=== PATIENT | female | born 1980 | race Caucasian/White ===

== ENCOUNTER 2019-01-03 18:28 | Emergency (ER) | payer OTHER ==
--- OUTSIDE RECORDS SUMMARY | 2019-01-03 18:42 | XMS REPORT | Continuity of Care Document ---
:1980 External Reference #:[id number] Author Name Clyde Mccarthy NP (transmitted by agent of provider Salima Early) Address [address], [place] [address] Care Team Providers Name Role Phone William Shannon MD - Family Medicine Care Team Information Director Of Advertising Sales [phone] Problems Active Problems Provider Date Multiple sclerosis Khalif Oseguera M.D. Onset: 11/06/2015 Social History Type Date Description Comments Sex Unknown ETOH Use Occasionally consumes alcohol Tobacco Use Start: Unknown Light tobacco smoker (10 or fewer cigarettes/day) Recreational Drug Use Denies Drug Use Smoking Status Reviewed: 12/30/18 Light tobacco smoker (10 or fewer cigarettes/day) Exercise Type/Frequency Exercises regularly Allergies, Adverse Reactions, Alerts Active Allergies Reaction Severity Comments Date NKDA 04/12/2014 Latex 04/12/2014 Enviornmental Allergies 11/06/2015 Medications Active Medications SIG Qnty Indications Ordering Date Provider Ketorolac Tromethamine take one tab by 20tabs R51 Khalif Garcia 12/28/2018 mouth every 4-6 Neil Oseguera 10mg Tablets hours, as needed for severe migraine for five days. max 4 doses a day. take with food. Gilenya take 1 capsule by 30caps R51 Khalif Garcia 11/06/2015 0.5mg Capsules mouth every day Neil Oseguera Levocetirizine Take 1 Tablet By Unknown Dihydrochloride Mouth Daily 5mg Tablets Vitamin D 1 po qd Unknown (Cholecalciferol) 2000Unit Tablets Allergy Shots every other week Unknown Qnasl 2 inhalations in Unknown 80mcg/Act Aerosol each nostril once daily Multivitamin Adult 1 by mouth every Unknown day Tablets Imitrex 1 by mouth as Unknown 50mg Tablets needed for severe headache and may repeat once in 2 hours Ibuprofen 200 1-2 tabs every 6 Unknown 200mg hours as needed Tablets for pain. Naproxen 1 by mouth twice a Unknown 250mg Tablets day prn Immunizations Description No Information Available Vital Signs Date Vital Result Comment 12/30/2018 8:30am Height 63 inches 5'3" Weight 127.00 lb Heart Rate 80 /min BP Systolic Sitting 122 mmHg BP Diastolic Sitting 70 mmHg Respiratory Rate 16 /min BMI (Body Mass Index) 22.5 kg/m2 12/28/2018 1:46pm Height 63 inches 5'3" Weight 127.00 lb Heart Rate 84 /min BP Systolic 142 mmHg BP Diastolic 88 mmHg BMI (Body Mass Index) 22.5 kg/m2 Results Test Date Facility Test Result H/L Range Note CBC Auto 12/28/2018 [facility] White Blood 5.3 10^3/uL Normal 3.5-10.[address] [place] [address] [phone] Red Blood Count 3.98 10^6/uL Normal 3.70-4.87 Hemoglobin 13.7 g/dL Normal 12.0-16.0 Hematocrit 39 % Normal 35-47 Mean Corpuscular Volume 98 fL High 80-97 Mean Corpuscular Hemoglobin 34 pg High 27-31 Mean Corpuscular HGB Conc 35 g/dL Normal 31-36 Red Cell Distribution Width 12 % Normal 10-15 Platelet Count 323 10^3/uL Normal 150-450 Mean Platelet Volume 7.8 fL Normal 7.4-10.4 Abs Neutrophils 4.3 10^3/uL Normal 1.5-7.7 Abs Lymphocytes 0.4 10^3/uL Low 1.0-4.8 Abs Monocytes 0.5 10^3/uL Normal 0-0.8 Abs Eosinophils 0.1 10^3/uL Normal 0-0.6 Abs Basophils 0.0 10^3/uL Normal 0-0.2 Abs Nucleated RBC 0.0 10^3/uL Granulocyte % 80.9 % Lymphocyte % 8.1 % Monocyte % 8.9 % Eosinophil % 1.6 % Basophil % 0.5 % Nucleated Red Blood Cells % 0.1 Comp Metabolic 12/28/2018 [facility] Sodium 140 mmol/L Normal 135-145 Panel [address] [place] [address] [phone] Potassium 3.9 mmol/L Normal 3.5-5.0 Chloride 105 mmol/L Normal 101-111 Co2 Carbon Dioxide 28 mmol/L Normal 22-32 Anion Gap 7 mmol/L Normal 2-11 Glucose 91 mg/dL Normal 70-100 Blood Urea Nitrogen 6 mg/dL Normal 6-24 Creatinine 0.70 mg/dL Normal 0.51-0.95 BUN/Creatinine Ratio 8.6 Normal 8-20 Calcium 9.2 mg/dL Normal 8.6-10.3 Total Protein 6.2 g/dL Low 6.4-8.9 Albumin 4.6 g/dL Normal 3.2-5.2 Globulin 1.6 g/dL Low 2-4 Albumin/Globulin Ratio 2.9 Normal 1-3 Total Bilirubin 0.60 mg/dL Normal 0.2-1.0 Alkaline Phosphatase 41 U/L Normal 34-104 Alt 18 U/L Normal 7-52 Ast 17 U/L Normal 13-39 Egfr Non- 94.2 >60 Egfr 113.9 >60 1 Laboratory test 12/28/2018 [facility] Monospot Negative Negative 2 finding [address] [place] [address] [phone] Lyme Screen W/ Reflex To WB Negative Negative Laboratory test 12/28/2018 [facility] C Reactive < 1.00 Normal <8.01 finding [address] [facility] Protein mg/[place] [address] [phone] CBC Auto Diff 08/23/2018 [facility] White Blood 5.1 Normal 3.5 -10.[address] Count 10^3/[place] [address] [phone] Red Blood Count 4.01 10^6/uL Normal 3.70-4.87 Hemoglobin 13.5 g/dL Normal 12.0-16.0 Hematocrit 39 % Normal 35-47 Mean Corpuscular Volume 97 fL Normal 80-97 Mean Corpuscular Hemoglobin 34 pg High 27-31 Mean Corpuscular HGB Conc 35 g/dL Normal 31-36 Red Cell Distribution Width 12 % Normal 10.5-15 Platelet Count 277 10^3/uL Normal 150-450 Mean Platelet Volume 8.4 fL Normal 7.4-10.4 Abs Neutrophils 4.1 10^3/uL Normal 1.5-7.7 Abs Lymphocytes 0.3 10^3/uL Low 1.0-4.8 Abs Monocytes 0.5 10^3/uL Normal 0-0.8 Abs Eosinophils 0.1 10^3/uL Normal 0-0.6 Abs Basophils 0.0 10^3/uL Normal 0-0.2 Abs Nucleated RBC 0.0 10^3/uL Granulocyte % 81.0 % Lymphocyte % 6.7 % Monocyte % 10.4 % Eosinophil % 1.5 % Basophil % 0.4 % Nucleated Red Blood Cells % 0.0 Comp Metabolic 08/23/2018 [facility] Sodium 138 mmol/L Normal 135-[address] [place] [address] [phone] Potassium 4.1 mmol/L Normal 3.5-5.0 Chloride 104 mmol/L Normal 101-111 Co2 Carbon Dioxide 27 mmol/L Normal 22-32 Anion Gap 7 mmol/L Normal 2-11 Glucose 72 mg/dL Normal 70-100 Blood Urea Nitrogen 8 mg/dL Normal 6-24 Creatinine 0.64 mg/dL Normal 0.51-0.95 BUN/Creatinine Ratio 12.5 Normal 8-20 Calcium 9.2 mg/dL Normal 8.6-10.3 Total Protein 6.6 g/dL Normal 6.4-8.9 Albumin 4.6 g/dL Normal 3.2-5.2 Globulin 2.0 g/dL Normal 2-4 Albumin/Globulin Ratio 2.3 Normal 1-3 Total Bilirubin 0.70 mg/dL Normal 0.2-1.0 Alkaline Phosphatase 44 U/L Normal 34-104 Alt 16 U/L Normal 7-52 Ast 20 U/L Normal 13-39 Egfr Non- 105.0 >60 Egfr 127.0 >60 3 1 Because ethnic data is not always readily available, this report includes an eGFR for both -Americans and non- Americans. The National Kidney Disease Education Program (NKDEP) does not endorse the use of the MDRD equation for patients that are not between the ages of 18 and 70, are , have extremes of body size, muscle mass, or nutritional status, or are non- or non-. According to the National Kidney Foundation, irrespective of diagnosis, the stage of the disease is based on the level of kidney function: Stage Description GFR(mL/min/1.73 m(2)) 1 Kidney damage with normal or decreased GFR 90 2 Kidney damage with mild decrease in GFR 60-89 3 Moderate decrease in GFR 30-59 4 Severe decrease in GFR 15-29 5 Kidney failure <15 (or dialysis) 2 Would you like an EBV if Monospot is Negative?: Y 3 Because ethnic data is not always readily available, this report includes an eGFR for both -Americans and non- Americans. The National Kidney Disease Education Program (NKDEP) does not endorse the use of the MDRD equation for patients that are not between the ages of 18 and 70, are , have extremes of body size, muscle mass, or nutritional status, or are non- or non-. According to the National Kidney Foundation, irrespective of diagnosis, the stage of the disease is based on the level of kidney function: Stage Description GFR(mL/min/1.73 m(2)) 1 Kidney damage with normal or decreased GFR 90 2 Kidney damage with mild decrease in GFR 60-89 3 Moderate decrease in GFR 30-59 4 Severe decrease in GFR 15-29 5 Kidney failure <15 (or dialysis) Procedures Description No Information Available Medical Devices Description No Information Available Encounters Type Date Location Provider Dx Diagnosis Office Visit 08/23/2018 [facility] Khalif Oseguera, G35 Multiple sclerosis 3:30p [facility] Z79.899 Other correction (current) drug therapy 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 08/23/2018 Z79.899 Other correction (current) drug therapy Khalif Oseguera M.D. 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 Plan of Treatment Future Appointment(s):02/21/2019 3:45 pm - Khalif Oseguera M.D. at [facility]12/30/2018 - Clyde Mccarthy, NPR51 [id number] Multiple sclerosisFollow up:May keep follow-up appointment with Dr. Oseguera on February 21, 2019.Z79.899 Other remote computer terminal operator (current) drug therapy Functional Status Description No Information Available Mental Status Description No Information Available Referrals Description No Information Available
--- OUTSIDE RECORDS SUMMARY | 2019-01-03 18:42 | XMS REPORT | Continuity of Care Document ---
:1980 External Reference #:[id number] Author Name Clyde Mccarthy NP (transmitted by agent of provider Salima Early) Address [address], [place] [address] Care Team Providers Name Role Phone William Shannon MD - Family Medicine Care Team Information Pad Hand Problems Active Problems Provider Date Multiple sclerosis Khalif Oseguera M.D. Onset: 11/06/2015 Social History Type Date Description Comments Sex Unknown ETOH Use Occasionally consumes alcohol Tobacco Use Start: Unknown Light tobacco smoker (10 or fewer cigarettes/day) Recreational Drug Use Denies Drug Use Smoking Status Reviewed: 12/28/18 Light tobacco smoker (10 or fewer cigarettes/day) [...] Available Vital Signs Date Vital Result Comment 12/28/2018 1:46pm Height 63 inches 5'3" Weight 127.00 lb Heart Rate 84 /min BP Systolic 142 mmHg BP Diastolic 88 mmHg BMI (Body Mass Index) 22.5 kg/m2 08/23/2018 3:34pm Height 63 inches 5'3" Weight 129.00 lb Heart Rate 68 /min BP Systolic Sitting 122 mmHg BP Diastolic Sitting 68 mmHg Respiratory Rate 16 /min BMI (Body Mass Index) 22.8 kg/m2 Results Test Date Facility Test Result H/L Range Note CBC Auto 08/23/2018 [facility] White Blood 5.1 10^3/uL Normal 3.5-10.[address] [place] [address] [phone] Red Blood Count 4.01 10^6/uL Normal 3.70-4.87 [...] Blood Cells % 0.0 Comp Metabolic 08/23/2018 [facility] Sodium 138 mmol/L Normal 135-[address] [place] [address] [phone] Potassium 4.1 mmol/L Normal 3.5-5.0 Chloride 104 [...] Egfr Non- 105.0 >60 Egfr 127.0 >60 1 1 Because ethnic data is not always [...] Location Provider Dx Diagnosis Office Visit 08/23/2018 [facility] Khalif Oseguera, G35 Multiple sclerosis 3:30p [facility] Felipe79.899 Other adjunct faculty for medical terminology (current) drug therapy 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 08/23/2018 Z79.899 Other halfway (current) drug therapy Khalif Oseguera M.D. 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 Plan of Treatment Future Appointment(s):12/30/2018 8:30 am - Clyde Mccarthy NP at [facility]/21/2019 3:45 pm - Khalif Oseguera M.D. at [facility]12/28/2018 - Clyde Mccarthy, NPR51 HeadacheNew Medication:Ketorolac Tromethamine 10 mg - take one tab by mouth every 4-6 hours, as needed for severe migraine for five days. max 4 doses a day. take with food.Follow up: Please schedule for Wednesday with Clyde Functional Status Description No Information Available Mental Status Description No Information Available Referrals Description No Information Available
--- NOTE | 2019-01-03 23:29 | ED ---
Headache - HPI Summary HPI Summary: Pt is a 38 y/o F presenting to the ED with a chief complaint of a headache initially onset on 12/25/18. The pain is located right at the base of her neck, the area is edematous, and it spreads to her L temporal region and behind her L eye. She has had migraines in the past but these sx are not normal for her. She also notes hx of MS. Toradol has alleviated her pain but it continuously comes back every time the toradol wears off. The pain is the worst in the morning, and she was advised to come to the ED by her neurologist. She reports vomiting, dizziness, and some tingling in her fingers. She denies blurred vision, and weakness in arms or legs. - History Of Current Complaint Chief Complaint: EDHeadache Stated Complaint: HEADACHE PER PT Time Seen by Provider: 01/03/19 21:34 Hx Obtained From: Patient Onset/Duration: Gradual Onset, Started days ago, Still Present Initially Headache Was: Moderate Currently Pain Is: Moderate Timing: Constant, Days Character: Throbbing - when bent over Aggravating Factor: Nothing Allevating Factors: Nothing Associated Signs And Symptoms: Dizziness, Vomiting, Other (Noted In Comments) - tingling in fingers - Allergies/Home Medications Allergies/Adverse Reactions: Allergies Allergy/AdvReac Type Severity Reaction Status Date / Time latex Allergy Itching Verified 01/03/19 13:56 Home Medications: Home Medications Fingolimod (NF) [Gilenya] 0.5 mg PO DAILY 01/03/19 [History Confirmed 01/03/19] Ketorolac TAB * [Toradol TAB *] 10 mg PO Q6HR PRN 01/03/19 [History Confirmed ] Multivitamins/Minerals TAB* [Theragran/minerals TAB*] 1 tab PO DAILY 01/03/19 [ History Confirmed 01/03/19] PMH/Surg Hx/FS Hx/Imm Hx Previously Healthy: Yes Endocrine/Hematology History: Denies: Hx Diabetes Cardiovascular History: Denies: Hx Hypertension, Hx Pacemaker/ICD Respiratory History: Denies: Hx Asthma History: Denies: Hx Renal Disease Musculoskeletal History: Reports: Other Musculoskeletal History - MS Sensory History: Denies: Hx Hearing Aid Neurological History: Reports: Other Neuro Impairments/Disorders - MS Psychiatric History: Denies: Hx Panic Disorder - Cancer History Cancer Type, 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 wisdom teeth,. moles removed,. TONSILLECTOMY,. IMPLANON CONTROL Infectious Disease History: No Infectious Disease History: Denies: Traveled Outside the [place] in Last 30 Days - Family History Known Family History: Negative: Diabetes - Social History Alcohol Use: None Hx Substance Use: No Substance Use Type: Reports: None Hx Tobacco Use: Yes Smoking Status (MU): Current Some Day Smoker Type: Cigarettes Amount Used/How Often: 1 pack per week Have You Smoked in the Last Year: Yes Review of Systems Positive: Fatigue, Other - feeling out of it Eyes: Negative Positive: Nausea. Negative: Vomiting Neurological: Other - dizziness Positive: Headache, Paresthesia - fingers. Negative: Weakness All Other Systems Reviewed And Are Negative: Yes Physical Exam - Summary Physical Exam Summary: Constitutional: Well-developed, Well-nourished, Alert. (-) Distressed Skin: Warm, Dry HENT: Normocephalic; Atraumatic Eyes: Conjunctiva normal Neck: Musculoskeletal ROM normal neck. (-) JVD, (-) Stridor, (-) Tracheal deviation Cardio: Rhythm regular, rate normal, Heart sounds normal; Intact distal pulses. Radial pulses are 2+ and symmetric. (-) Murmur Pulmonary/Chest wall: Effort normal. (-) Respiratory distress, (-) Wheezes, (-) Rales Abd: Soft. (-) Tenderness, (-) Distension, (-) Guarding, (-) Rebound Musculoskeletal: (-) Edema Lymph: (-) Cervical adenopathy Neuro: Alert, Oriented x3, Strength normal, Cranial nerves II-XII are grossly intact. (-) Dysmetria, (-) Nystagmus, (-) Ataxia by finger to nose testing, (-) Sensory deficit. Psych: Mood and affect Normal Triage Information Reviewed: Yes Vital Signs On Initial Exam: Initial Vitals Temp Pulse Resp BP Pulse Ox 98.3 F 89 18 130/90 100 01/03/19 18:33 01/03/19 18:33 01/03/19 18:33 01/03/19 18:33 01/03/19 18:33 Vital Signs Reviewed: Yes - Junior Coma Scale Best Eye Response: 4 - Spontaneous Best Motor Response: 6 - Obeys Commands Best Verbal Response: 5 - Oriented Coma Scale Total: 15 Procedures - Sedation Patient Received Moderate/Deep Sedation with Procedure: No Diagnostics - Vital Signs Vital Signs Temp Pulse Resp BP Pulse Ox 01/03/19 21:00 99.1 F 86 18 138/79 100 01/03/19 18:33 98.3 F 89 18 130/90 100 - Laboratory Lab Statement: Any lab studies that have been ordered have been reviewed, and results considered in the medical decision making process. - CT Brain CT CT Interpretation Completed By: Radiologist Summary of CT Findings: 1. No acute intracranial findings. No intracranial hemorrhage. 2. Subtle areas of white matter hypodensity consistent with abnormalities on brain MRI dated 04/15/18, suggesting areas of demyelination from multiple sclerosis. ED physician has reviewed this report. Headache Course/Dx - Course Course Of Treatment: Patient is here 10 days of waxing and waning headache that is currently improving. Patient had a normal neurologic exam here. Patient was offered IV medicine than she would have to have a ride corrupt but she could not find a ride. Patient had negative CT brain. The patient is discharged a small prescription of Fioricet and instructions to follow-up with Dr. Oseguera - Diagnoses Provider Diagnoses: Headache Discharge ED - Sign-Out/Discharge Documenting (check all that apply): Patient Departure - Discharge Plan Condition: Stable Disposition: HOME Prescriptions: Butalb/Acetamin/Caff TAB* [Fioricet TAB*] 1 tab PO Q8H PRN #12 tab MDD 3 tablets PRN Reason: Headache Patient Education Materials: General Headache (ED) Referrals: William Shannon MD [Primary Care Provider] - Additional Instructions: Please follow up with Dr. Oseguera within the next 1-3 days. Take your new medications as prescribed. Return to the emergency department with any new or worsening symptoms, such as vomiting, one-sided weakness, or fever. - Billing Disposition and Condition Condition: STABLE Disposition: Home - Attestation Statements Document Initiated by Scribe: Yes Documenting Scribe: Zoya Blanco Provider For Whom Scribe is Documenting (Include Credential): Miguel Emanuel MD. Scribe Attestation: Zoya Casanova, scribed for Miguel Emanuel MD. on 01/04/19 at 0304. Scribe Documentation Reviewed: Yes Provider Attestation: The documentation as recorded by the scribe, Zoya Blanco accurately reflects the service I personally performed and the decisions made by me, Miguel Emanuel MD. Status of Scribe Document: Viewed
[2019-01-04 00:10] VITALS: BP 140/80
== END 2019-01-04 00:09 | disposition home or self-care (01) ==
LOC: ED 18:28
DX: R51 Headache (principal); F17.210 Nicotine dependence, cigarettes, uncomplicated; Z91.040 Latex allergy status; Z79.899 Other long term (current) drug therapy
CPT/HCPCS: 70450; 99282

== ENCOUNTER 2019-07-11 19:09 | Inpatient (IN) | payer OTHER ==
--- NOTE | 2019-07-11 19:44 | ED ---
Complex/Multi-Sys Presentation - HPI Summary HPI Summary: This patient is a 38 y/o female, with hx of MS, presenting [place] [facility] [place]/o fever today. Patient reports she was at work today and at around 1700 she suddenly felt warm and had visual changes. She notes she had blurry vision that lasted for about 1 hour and went home. Patient states she is able to see better now with no problems, however she feels like she is "drunk." She states a subjective fever now but did not take her temperature. Denies any upper respiratory infection symptoms. Denies cough, chest pain, SOB, palpitations, nausea, vomiting, diarrhea, constipation. Patient admits to smoking occasionally. Denies alcohol or drug use. Home Medications Medication Instructions Recorded Confirmed Type Cholecalciferol TAB* [Vitamin D 2,000 units PO DAILY 04/03/16 07/11/19 History TAB*] Fingolimod (NF) [Gilenya] 0.5 mg PO DAILY 01/03/19 07/11/19 History Multivitamins/Minerals TAB* 1 tab PO DAILY 01/03/19 07/11/19 History [Theragran/minerals TAB*] Butalb/Acetamin/Caff TAB* 1 tab PO Q8H PRN #12 tab MDD 3 01/04/19 07/11/19 Rx [Fioricet TAB*] tablets LevoCETirizine TAB (NF) [Xyzal TAB 5 mg PO DAILY 07/11/19 07/11/19 History (NF)] SUMAtriptan TAB* [Imitrex TAB*] 50 mg PO BID PRN 07/11/19 07/11/19 History - History Of Current Complaint Time Seen by Provider: 07/11/19 19:19 Hx Obtained From: Patient Onset/Duration: Lasting Hours, Still Present Timing: Hours Severity Currently: Moderate Aggravating Factor(s): nothing Alleviating Factor(s): nothing Associated Signs And Symptoms: Positive: Fever, Other - NEGATIVE: constipation. Negative: SOB, Cough, Chest Pain, Palpitations, Nausea, Vomiting, Diarrhea, Abdominal Pain - Allergies/Home Medications Allergies/Adverse Reactions: Allergies Allergy/AdvReac Type Severity Reaction Status Date / Time latex Allergy Itching Verified 07/11/19 19:47 Home Medications: Home Medications Cholecalciferol TAB* [Vitamin D TAB*] 2,000 units PO DAILY 04/03/16 [History Confirmed 07/11/19] Fingolimod (NF) [Gilenya] 0.5 mg PO DAILY 01/03/19 [History Confirmed 07/11/19] Multivitamins/Minerals TAB* [Theragran/minerals TAB*] 1 tab PO DAILY 01/03/19 [ History Confirmed 07/11/19] Butalb/Acetamin/Caff TAB* [Fioricet TAB*] 1 tab PO Q8H PRN #12 tab MDD 3 tablets 01/04/19 [Rx Confirmed 07/11/19] LevoCETirizine TAB (NF) [Xyzal TAB (NF)] 5 mg PO DAILY PRN 07/11/19 [History Confirmed 07/11/19] SUMAtriptan TAB* [Imitrex TAB*] 50 mg PO BID PRN 07/11/19 [History Confirmed ] PMH/Surg Hx/FS Hx/Imm Hx Endocrine/Hematology History: Denies: Hx Diabetes Cardiovascular History: Denies: Hx Hypertension, Hx Pacemaker/ICD Respiratory History: Denies: Hx Asthma History: Denies: Hx Renal Disease Musculoskeletal History: Reports: Other Musculoskeletal History - MS Sensory History: Denies: Hx Hearing Aid Neurological History: Reports: Other Neuro Impairments/Disorders - MS Psychiatric History: Denies: Hx Panic Disorder - Cancer History Cancer Type, 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 wisdom teeth,. moles removed,. TONSILLECTOMY,. IMPLANON CONTROL - Family History Known Family History: Negative: Diabetes - Social History Alcohol Use: None Hx Substance Use: No Substance Use Type: Reports: None Hx Tobacco Use: Yes Smoking Status (MU): Current Some Day Smoker Type: Cigarettes Amount Used/How Often: 1 pack per week Have You Smoked in the Last Year: Yes Review of Systems Positive: Fever - subjective Positive: Blurred Vision Negative: Palpitations, Chest Pain Negative: Shortness Of Breath, Cough Negative: Vomiting, Diarrhea, Nausea, Other - NEGATIVE: constipation All Other Systems Reviewed And Are Negative: Yes Physical Exam - Summary Physical Exam Summary: VITAL SIGNS: Reviewed. GENERAL: Patient is a well-developed and nourished female who is lying comfortable in the stretcher. Patient is not in any acute respiratory distress. HEAD AND FACE: No signs of trauma. No ecchymosis, hematomas or skull depressions. No sinus tenderness. EYES: PERRLA, EOMI x 2, No injected conjunctiva, no nystagmus. EARS: Hearing grossly intact. Ear canals and tympanic membranes are within normal limits. MOUTH: Oropharynx within normal limits. NECK: Supple, trachea is midline, no adenopathy, no JVD, no carotid bruit, no c- spine tenderness, neck with full ROM. CHEST: Symmetric, no tenderness at palpation LUNGS: Clear to auscultation bilaterally. No wheezing or crackles. CVS: Regular rate and rhythm, S1 and S2 present, no murmurs or gallops appreciated. ABDOMEN: Soft, non-tender. No signs of distention. No rebound no guarding, and no masses palpated. Bowel sounds are normal. EXTREMITIES: FROM in all major joints, no edema, no cyanosis or clubbing. NEURO: Alert and oriented x 3. No acute neurological deficits. Speech is normal and follows commands. SKIN: Dry and warm Triage Information Reviewed: Yes Vital Signs On Initial Exam: Initial Vitals Temp Pulse Resp BP Pulse Ox 101.6 F 118 18 132/81 98 07/11/19 19:41 07/11/19 19:41 07/11/19 19:41 07/11/19 19:41 07/11/19 19:41 Vital Signs Reviewed: Yes Procedures - Sedation Patient Received Moderate/Deep Sedation with Procedure: No Diagnostics - Laboratory Result Diagrams: 07/12/19 09:15 07/11/19 20:10 Lab Statement: Any lab studies that have been ordered have been reviewed, and results considered in the medical decision making process. - Radiology Chest XR Radiology Interpretation Completed By: ED Physician Summary of Radiographic Findings: Pending XR. Re-Evaluation - Re-Evaluation First Eval Re-Evaluation Time: 19:42 Comment: Patient has an oral temperature of 101.6 F. Complex Multi-Symp Course/Dx Assessment/Plan: This patient is a 38 y/o female, with hx of MS, presenting to [facility] c/o fever today. Patient reports she was at work today and at around 1700 she suddenly felt warm. Additionally notes she had blurry vision that lasted for about 1 hour and is currently resolving. Patient states she is able to see better now with no problems, however she feels like she is "drunk." She states a subjective fever now but did not take her temperature. Denies any upper respiratory infection symptoms. Denies cough, chest pain, SOB, palpitations, nausea, vomiting, diarrhea, constipation. Patient admits to smoking occasionally. Denies alcohol or drug use. In the ED course the patient was placed in a ladle pourer, IV access was obtained. Patient is febrile at 101.6F, heart rate is 118, respiratory rate is 18, O2 saturation is 98 and blood pressure is 132/81. He is positive for sepsis criteria. However since the patient may be at risk for COVID-19, I will not start the patient on IV fluids 30 ccs per KG. The patient will not be started on antibiotics at this time. I will order the blood work, chest x-ray, blood cultures and a urinalysis. I will also order the COVID-19 test. She was given 650 mg of Tylenol. Past medical records reviewed. Blood test w/o a significant abnormality except for WBC of 12.9, absolute neutrophils of 12, CRP of 11.96, urinalysis is positive for UTI. Blood culture was sent and we started patient on Rocephin for the UTI. I discussed the case with Dr. Vasquez, hospitalist, and she recommend giving one litter of IV fluids since the patient has a UTI. I discussed my physical exam and test results with Dr. Vasquez from the hospitalist services and she agrees to admit the patient to her services. The patient is hemodynamically stable, alert and oriented x 3. - Diagnoses Provider Diagnoses: UTI (urinary tract infection) - Physician Notifications Discussed Care Of Patient With: Anuja Vasquez - hospitalist Time Discussed With Above Provider: 20:49 Instructed by Provider To: Admit As Inpatient - Critical Care Time Critical Care Statement: Critical care time is provided exclusive of any time spent performing procedures. Discharge ED - Sign-Out/Discharge Documenting (check all that apply): Patient Departure - [place] [facility] [place] Discharge Plan Condition: Stable Disposition: ADMITTED TO [facility] - Billing Disposition and Condition Condition: STABLE Disposition: Admitted to [facility] - Attestation Statements Document Initiated by Scribe: Yes Documenting Scribe: Concepcion Carter Provider For Whom Scribe is Documenting (Include Credential): Thad Medellin, MD Scribe Attestation: I, Concepcion Carter, scribed for Thad Medellin MD on 07/12/19 at 1227. Scribe Documentation Reviewed: Yes Provider Attestation: The documentation as recorded by the scribeConcepcion accurately reflects the service I personally performed and the decisions made by me, Thad Medellin MD Status of Scribe Document: Viewed
--- OUTSIDE RECORDS SUMMARY | 2019-07-11 20:05 | XMS REPORT | Continuity of Care Document ---
:1980 External Reference #:[id number] Author Name Allergy Injection (transmitted by agent of provider Pearl Pozo) Address [address] [place] [address] Care Team Providers Name Role Phone William Shannon M.D. - Family Medicine Care Team Information 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 Onset: 12/09/2015 Allergic rhinitis Joel Call M.D. Onset: 07/09/2014 Acute sinusitis Joel Call M.D. Onset: 07/09/2014 Allergic rhinitis due to pollen Joel Call M.D. Onset: 05/22/2013 Social History Type Date Description Comments Sex Unknown ETOH Use Rarely consumes alcohol Tobacco Use Start: Unknown Patient is a current smoker, smokes some days Recreational Drug Use Never Used Drugs Allergies, Adverse Reactions, Alerts Description No Known Drug Allergies Medications Active Medications SIG Qnty Indications Ordering Date Provider Qnasl Use 2 Sprays 10.6units J30.1 Kathryn 12/09/2015 80mcg/Act Aerosol In Each Uldrich, [employer]ER-C Nostril Daily Levocetirizine Take 1 Tablet 90tabs Kathryn 06/18/2014 Dihydrochloride By Mouth Every Uldrich, [employer] FORESTER-C 5mg Tablets Day Levocetirizine Take 1 Tablet 90tabs Kathryn 06/18/2014 Dihydrochloride By Mouth Every Uldrich, [employer] FORESTER-C 5mg Tablets Day Multivital one a day Unknown Tablets Vitamin D once daily Unknown 2000Unit Tablets Gilenya Take 1 Capsule Unknown 0.5mg Capsules By Mouth Every Day Nexplanon Unknown 68mg Implant Medications Administered in Office Medication SIG Qnty Indications Ordering Provider Date Injection Allergy Injection 06/19/2019 Injection Injection Allergy Injection 06/05/2019 Injection Injection Allergy Injection 05/08/2019 Injection Injection Allergy Injection 04/24/2019 Injection Injection Allergy Injection 04/17/2019 Injection Injection Allergy Injection 03/27/2019 Injection Injection Allergy Injection 02/20/2019 Injection Injection Allergy Injection 01/30/2019 Injection Injection Allergy Injection 01/23/2019 Injection Injection Allergy Injection 12/05/2018 Injection Injection Allergy Injection 11/23/2018 Injection Injection Allergy Injection 10/31/2018 Injection Injection Allergy Injection 10/10/2018 Injection Injection Allergy Injection 09/26/2018 Injection Injection Allergy Injection 09/12/2018 Injection Injection Allergy Injection 08/29/2018 Injection Injection Allergy Injection 08/15/2018 Injection Injection Allergy Injection 08/01/2018 Injection Injection Allergy Injection 07/11/2018 Injection Injection Allergy Injection 06/27/2018 Injection Injection Allergy Injection 06/13/2018 Injection Injection Allergy Injection 05/02/2018 Injection Injection Allergy Injection 04/18/2018 Injection Injection Allergy Injection 04/04/2018 Injection Injection Allergy Injection 03/07/2018 Injection Injection Allergy Injection 02/14/2018 Injection Injection Allergy Injection 01/24/2018 Injection Injection Allergy Injection 01/10/2018 Injection Injection Allergy Injection 12/20/2017 Injection Injection Allergy Injection 12/06/2017 Injection Injection Allergy Injection 11/24/2017 Injection Injection Pretty Thomas M.D. 11/15/2017 Injection Injection Allergy Injection 11/15/2017 Injection Injection Allergy Injection 11/01/2017 Injection Injection Pretty Thomas M.D. 10/18/2017 Injection Injection Allergy Injection 10/18/2017 Injection Injection Allergy Injection 09/27/2017 Injection Injection Allergy Injection 09/13/2017 Injection Injection Allergy Injection 08/30/2017 Injection Injection Pretty Thomas M.D. 08/16/2017 Injection Injection Allergy Injection 08/16/2017 Injection Injection Pretty Thomas M.D. 08/02/2017 Injection Injection Allergy Injection 08/02/2017 Injection Injection Allergy Injection 07/19/2017 Injection Injection Allergy Injection 06/28/2017 Injection Injection Allergy Injection 06/14/2017 Injection Injection Allergy Injection 05/31/2017 Injection Injection Allergy Injection 05/17/2017 Injection Injection Allergy Injection 05/03/2017 Injection Injection Allergy Injection 04/19/2017 Injection Injection Allergy Injection 04/05/2017 Injection Injection Allergy Injection 03/18/2017 Injection Injection Allergy Injection 03/08/2017 Injection Injection Allergy Injection 02/22/2017 Injection Injection Pretty Thomas M.D. 02/08/2017 Injection Injection Allergy Injection 02/08/2017 Injection Injection Allergy Injection 01/25/2017 Injection Injection Allergy Injection 01/11/2017 Injection Injection Allergy Injection 12/21/2016 Injection Injection Allergy Injection 12/03/2016 Injection Injection Allergy Injection 11/16/2016 Injection Injection Allergy Injection 11/02/2016 Injection Injection Allergy Injection 10/19/2016 Injection Injection Allergy Injection 10/05/2016 Injection Injection Pretty Thomas M.D. 09/14/2016 Injection Injection Allergy Injection 09/14/2016 Injection Injection Allergy Injection 08/31/2016 Injection Injection Allergy Injection 08/17/2016 Injection Injection Allergy Injection 07/20/2016 Injection Injection Allergy Injection 07/06/2016 Injection Injection Allergy Injection 06/22/2016 Injection Injection Pretty Thomas M.D. 06/08/2016 Injection Injection Allergy Injection 06/08/2016 Injection Injection Allergy Injection 05/25/2016 Injection Injection Allergy Injection 05/11/2016 Injection Injection Allergy Injection 04/20/2016 Injection Injection Allergy Injection 04/06/2016 Injection Injection Allergy Injection 03/27/2016 Injection Injection Allergy Injection 03/16/2016 Injection Injection Allergy Injection 03/02/2016 Injection Injection Allergy Injection 02/17/2016 Injection Injection Allergy Injection 02/03/2016 Injection Injection Allergy Injection 01/20/2016 Injection Injection Allergy Injection 12/30/2015 Injection Injection Allergy Injection 12/09/2015 Injection Injection Allergy Injection 11/25/2015 Injection Injection Allergy Injection 11/11/2015 Injection Injection Allergy Injection 10/21/2015 Injection Injection Allergy Injection 2015 Injection Injection Pretty Thomas M.D. 09/23/2015 Injection Injection Allergy Injection 09/23/2015 Injection Injection Allergy Injection 09/16/2015 Injection Injection Allergy Injection 09/02/2015 Injection Injection Allergy Injection 08/19/2015 Injection Injection Allergy Injection 08/12/2015 Injection Injection Allergy Injection 07/29/2015 Injection Injection Allergy Injection 07/15/2015 Injection Injection Allergy Injection 07/01/2015 Injection Injection Allergy Injection 06/17/2015 Injection Injection Allergy Injection 06/03/2015 Injection Injection Allergy Injection 05/20/2015 Injection Injection Allergy Injection 04/29/2015 Injection Injection Allergy Injection 04/15/2015 Injection Injection Allergy Injection 04/01/2015 Injection Injection Allergy Injection 03/18/2015 Injection Injection Allergy Injection 03/11/2015 Injection Injection Allergy Injection 03/04/2015 Injection Injection Allergy Injection 02/25/2015 Injection Injection Allergy Injection 02/13/2015 Injection Injection Allergy Injection 01/28/2015 Injection Injection Allergy Injection 01/14/2015 Injection Injection Allergy Injection 12/24/2014 Injection Injection Allergy Injection 12/12/2014 Injection Injection Allergy Injection 11/30/2014 Injection Injection Allergy Injection 11/19/2014 Injection Injection Allergy Injection 11/05/2014 Injection Injection Allergy Injection 10/22/2014 Injection Injection Allergy Injection 10/01/2014 Injection Injection Allergy Injection 09/17/2014 Injection Injection Allergy Injection 09/10/2014 Injection Injection Allergy Injection 09/03/2014 Injection Injection Allergy Injection 08/27/2014 Injection Injection Allergy Injection 08/06/2014 Injection Injection Allergy Injection 07/30/2014 Injection Injection Allergy Injection 07/23/2014 Injection Injection Allergy Injection 07/16/2014 Injection Injection Allergy Injection 07/09/2014 Injection Injection Allergy Injection 07/04/2014 Injection Injection Allergy Injection 06/18/2014 Injection Injection Allergy Injection 06/11/2014 Injection Injection Allergy Injection 05/21/2014 Injection Injection Allergy Injection 05/14/2014 Injection Injection Allergy Injection 05/07/2014 Injection Injection Allergy Injection 04/23/2014 Injection Injection Allergy Injection 04/16/2014 Injection Injection Allergy Injection 04/09/2014 Injection Injection Allergy Injection 04/02/2014 Injection Injection Allergy Injection 03/26/2014 Injection Injection Allergy Injection 03/19/2014 Injection Injection Allergy Injection 03/12/2014 Injection Injection Allergy Injection 03/05/2014 Injection Injection Allergy Injection 02/26/2014 Injection Injection Allergy Injection 02/19/2014 Injection Injection Allergy Injection 02/12/2014 Injection Injection Allergy Injection 02/05/2014 Injection Injection Allergy Injection 01/29/2014 Injection Injection Allergy Injection 01/08/2014 Injection Injection Allergy Injection 01/01/2014 Injection Injection Allergy Injection 12/25/2013 Injection Injection Allergy Injection 12/18/2013 Injection Injection Allergy Injection 12/11/2013 Injection Injection Allergy Injection 12/04/2013 Injection Injection Allergy Injection 11/24/2013 Injection Injection Allergy Injection 11/20/2013 Injection Injection Allergy Injection 11/13/2013 Injection Injection Allergy Injection 11/06/2013 Injection Injection Allergy Injection 10/30/2013 Injection Injection Allergy Injection 10/23/2013 Injection Injection Allergy Injection 10/02/2013 Injection Injection Allergy Injection 09/25/2013 Injection Injection Allergy Injection 09/18/2013 Injection Injection Allergy Injection 09/11/2013 Injection Injection Allergy Injection 09/04/2013 Injection Injection Allergy Injection 08/28/2013 Injection Injection Allergy Injection 08/18/2013 Injection Injection Allergy Injection 08/14/2013 Injection Injection Allergy Injection 07/31/2013 Injection Injection Allergy Injection 07/24/2013 Injection Injection Allergy Injection 07/17/2013 Injection Injection Joel Call M.D. 04/20/2011 Injection Injection Pretty Thomas M.D. 04/13/2011 Injection Injection Beto NaiNeil chinchilla 11/17/2010 Injection Injection Beto Neil Trimble 11/03/2010 Injection Injection Beto Neil Trimble 10/20/2010 Injection Injection Beto Neil Trimble 09/26/2010 Injection Injection Beto Neil Trimble 09/12/2010 Injection Injection Beto Neil Trimble 08/18/2010 Injection Injection Beto Neil Trimble 07/28/2010 Injection Injection Beto Neil Trimble 07/07/2010 Injection Injection Beto Neil Trimble 06/09/2010 Injection Injection Beto Neil Trimble 05/26/2010 Injection Injection Beto Neil Trimble 05/12/2010 Injection Injection Jannet Quesada MD 03/31/2010 Injection Injection Jannet Quesada MD 02/17/2010 Injection Injection Beto Neil Trimble 01/20/2010 Injection Injection Ramon Crockett M.D. 12/16/2009 Injection Injection Ramon Crockett M.D. 11/25/2009 Injection Injection Ramon Crockett M.D. 11/11/2009 Injection Injection Beto Neil Trimble 10/28/2009 Injection Injection Beto Trimble M.D. 10/14/2009 Injection Injection Beto Nai, M.D. 09/09/2009 Injection Injection Beto Nai, M.D. 08/19/2009 Injection Injection Beto Nai, M.D. 07/29/2009 Injection Injection Beto Nai, M.D. 07/08/2009 Injection Injection Beto Nai, M.DYasir 05/27/2009 Injection Injection Beto Nai, M.DYasir 04/29/2009 Injection Injection Beto Nai, M.DYasir 03/25/2009 Injection Injection Beto Nai, M.D. 03/18/2009 Injection Injection Beto Nai, M.DYasir 03/11/2009 Injection Injection Beto Nai, M.DYasir 03/04/2009 Injection Injection Beto Nai, M.D. 02/25/2009 Injection Injection Beto Nai, M.DYasir 02/11/2009 Injection Injection Beto Nai, M.DYasir 01/14/2009 Injection Injection Beto Nai, M.DYasir 12/24/2008 Injection Injection Beto Nai, M.D. 11/14/2008 Injection Injection Beto Nai, M.DYasir 10/29/2008 Injection Injection Beto Nai, M.D. 10/22/2008 Injection Injection Beto Nai, M.DYasir 09/19/2008 Injection Injection Beto Nai, M.D. 09/05/2008 Injection Injection Beto Nai, M.D. 08/15/2008 Injection Injection Beto Nai, M.DYasir 08/08/2008 Injection Injection Beto Nai, M.D. 08/01/2008 Injection Injection Beto Nai, M.D. 07/25/2008 Injection Injection Beto Nai, M.D. 07/13/2008 Injection Injection Beto Nai, M.D. 06/22/2008 Injection Injection Beto Nai, M.D. 06/15/2008 Injection Injection Beto Nai, M.D. 06/06/2008 Injection Injection Beto Nai, M.D. 05/25/2008 Injection Injection Beto Nai, M.DYasir 05/11/2008 Injection Injection Beto Nai, M.DYasir 04/27/2008 Injection Injection Beto Neil Trimble 04/20/2008 Injection Injection Beto Neil Trimble 04/06/2008 Injection Injection Beto Neil Trimble 02/29/2008 Injection Injection Ramon Crockett M.D. 02/03/2008 Injection Injection Beto NaiNeil chinchilla 01/23/2008 Injection Injection Beto Neil Trimble 01/06/2008 Injection Injection Beto Nai, Neil 12/14/2007 Injection Injection Beto Nai, Neil 11/30/2007 Injection Injection Beto Nai, Neil 11/23/2007 Injection Injection Beto NaiNeil chinchilla 11/02/2007 Injection Injection Beto Nai, Neil 10/28/2007 Injection Injection Beto Neil Trimble 10/21/2007 Injection Injection Beto Neil Trimble 10/05/2007 Injection Injection Beto Neil Trimble 09/23/2007 Injection Injection Beto Nai, Neil 09/16/2007 Injection Injection Beto Nai, Neil 09/09/2007 Injection Injection Beto Neil Trimble 08/26/2007 Injection Injection Beto NaiNeil chinchilla 08/19/2007 Injection Injection Beto NaiNeil chinchilla 08/05/2007 Injection Immunizations CPT Code Status Date Vaccine Lot # [id number] Given Unknown Influenza Vaccine Vital Signs Date Vital Result Comment 07/19/2017 3:53pm Height 63.5 inches 5'3.50" Weight 130.00 lb Weight 58.968 kg Respiratory Rate 20 /min Heart Rate 94 /min O2 % BldC Oximetry 98 % BP Systolic 117 mmHg BP Diastolic 72 mmHg Asthma Control Test 25 BMI (Body Mass Index) 22.7 kg/m2 06/08/2016 5:27pm Height 63.5 inches 5'3.50" Weight 128.00 lb Weight 58.061 kg Respiratory Rate 18 /min Heart Rate 90 /min O2 % BldC Oximetry 98 % BP Systolic 102 mmHg BP Diastolic 73 mmHg BMI (Body Mass Index) 22.3 kg/m2 Results Description No Information Available Procedures Date Code Description Status 06/19/2019 18043 Injection Completed 06/05/2019 64205 Injection Completed 05/08/2019 70366 Injection Completed 04/24/2019 71110 Injection Completed 04/17/2019 76591 Injection Completed 03/27/2019 23514 Injection Completed 02/20/2019 30711 Extract 1-10 Completed 02/20/2019 99884 Injection Completed 01/30/2019 55613 Injection Completed 01/23/2019 74838 Injection Completed Medical Devices Description No Information Available Encounters Description No Information Available Assessments Date Code Description Provider 06/19/2019 J30.1 Allergic rhinitis due to pollen Pretty Thomas M.D. 06/19/2019 J30.1 Allergic rhinitis due to pollen Allergy Injection 06/19/2019 J30.2 Other seasonal allergic rhinitis Pretty Thomas M.D. 06/19/2019 J30.2 Other seasonal allergic rhinitis Allergy Injection 06/19/2019 J30.81 Allergic rhinitis due to animal (cat) (dog) Pretty Thomas M.D. hair and dander 06/19/2019 J30.81 Allergic rhinitis due to animal (cat) (dog) Allergy Injection hair and dander 06/19/2019 J30.89 Other allergic rhinitis Pretty Thomas M.D. 06/19/2019 J30.89 Other allergic rhinitis Allergy Injection 06/05/2019 J30.1 Allergic rhinitis due to pollen Pretty Thomas M.D. 06/05/2019 J30.1 Allergic rhinitis due to pollen Allergy Injection 06/05/2019 J30.2 Other seasonal allergic rhinitis Pretty Thomas M.D. 06/05/2019 J30.2 Other seasonal allergic rhinitis Allergy Injection 06/05/2019 J30.81 Allergic rhinitis due to animal (cat) (dog) Pretty Thomas M.D. hair and dander 06/05/2019 J30.81 Allergic rhinitis due to animal (cat) (dog) Allergy Injection hair and dander 06/05/2019 J30.89 Other allergic rhinitis Pretty Thomas M.D. 06/05/2019 J30.89 Other allergic rhinitis Allergy Injection 05/08/2019 J30.1 Allergic rhinitis due to pollen Pretty Thomas M.D. 05/08/2019 J30.1 Allergic rhinitis due to pollen Allergy Injection 05/08/2019 J30.2 Other seasonal allergic rhinitis Pretty Thomas M.D. 05/08/2019 J30.2 Other seasonal allergic rhinitis Allergy Injection 05/08/2019 J30.81 Allergic rhinitis due to animal (cat) (dog) Pretty Thomas M.D. hair and dander 05/08/2019 J30.81 Allergic rhinitis due to animal (cat) (dog) Allergy Injection hair and dander 05/08/2019 J30.89 Other allergic rhinitis Pretty Thomas M.D. 05/08/2019 J30.89 Other allergic rhinitis Allergy Injection 04/24/2019 J30.1 Allergic rhinitis due to pollen Pretty Thomas M.D. 04/24/2019 J30.1 Allergic rhinitis due to pollen Allergy Injection 04/24/2019 J30.2 Other seasonal allergic rhinitis Pretty Thomas M.D. 04/24/2019 J30.2 Other seasonal allergic rhinitis Allergy Injection 04/24/2019 J30.81 Allergic rhinitis due to animal (cat) (dog) Pretty Thomas M.D. hair and dander 04/24/2019 J30.81 Allergic rhinitis due to animal (cat) (dog) Allergy Injection hair and dander 04/24/2019 J30.89 Other allergic rhinitis Pretty Thomas M.D. 04/24/2019 J30.89 Other allergic rhinitis Allergy Injection 04/17/2019 J30.1 Allergic rhinitis due to pollen Pretty Thomas M.D. 04/17/2019 J30.1 Allergic rhinitis due to pollen Allergy Injection 04/17/2019 J30.2 Other seasonal allergic rhinitis Pretty Thomas M.D. 04/17/2019 J30.2 Other seasonal allergic rhinitis Allergy Injection 04/17/2019 J30.81 Allergic rhinitis due to animal (cat) (dog) Pretty Thomas M.D. hair and dander 04/17/2019 J30.81 Allergic rhinitis due to animal (cat) (dog) Allergy Injection hair and dander 04/17/2019 J30.89 Other allergic rhinitis Pretty Thomas M.D. 04/17/2019 J30.89 Other allergic rhinitis Allergy Injection 03/27/2019 J30.1 Allergic rhinitis due to pollen Pretty Thomas M.D. 03/27/2019 J30.1 Allergic rhinitis due to pollen Allergy Injection 03/27/2019 J30.2 Other seasonal allergic rhinitis Pretty Thomas M.D. 03/27/2019 J30.2 Other seasonal allergic rhinitis Allergy Injection 03/27/2019 J30.81 Allergic rhinitis due to animal (cat) (dog) Pretty Thomas M.D. hair and dander 03/27/2019 J30.81 Allergic rhinitis due to animal (cat) (dog) Allergy Injection hair and dander 03/27/2019 J30.89 Other allergic rhinitis Pretty Thomas M.D. 03/27/2019 J30.89 Other allergic rhinitis Allergy Injection 02/20/2019 J30.1 Allergic rhinitis due to pollen Pretty Thomas M.D. 02/20/2019 J30.1 Allergic rhinitis due to pollen Pretty Thomas M.D. 02/20/2019 J30.2 Other seasonal allergic rhinitis Pretty Thomas M.D. 02/20/2019 J30.1 Allergic rhinitis due to pollen Allergy Injection 02/20/2019 J30.81 Allergic rhinitis due to animal (cat) (dog) Pretty Thomas M.D. hair and dander 02/20/2019 J30.2 Other seasonal allergic rhinitis Pretty Thomas M.D. 02/20/2019 J30.89 Other allergic rhinitis Pretty Thomas M.D. 02/20/2019 J30.2 Other seasonal allergic rhinitis Allergy Injection 02/20/2019 J30.81 Allergic rhinitis due to animal (cat) (dog) Pretty Thomas M.D. hair and dander 02/20/2019 J30.81 Allergic rhinitis due to animal (cat) (dog) Allergy Injection hair and dander 02/20/2019 J30.89 Other allergic rhinitis Pretty Thomas M.D. 02/20/2019 J30.89 Other allergic rhinitis Allergy Injection 01/30/2019 J30.1 Allergic rhinitis due to pollen Pretty Thomas M.D. 01/30/2019 J30.1 Allergic rhinitis due to pollen Allergy Injection 01/30/2019 J30.2 Other seasonal allergic rhinitis Pretty Thomas M.D. 01/30/2019 J30.2 Other seasonal allergic rhinitis Allergy Injection 01/30/2019 J30.81 Allergic rhinitis due to animal (cat) (dog) Pretty Thomas M.D. hair and dander 01/30/2019 J30.81 Allergic rhinitis due to animal (cat) (dog) Allergy Injection hair and dander 01/30/2019 J30.89 Other allergic rhinitis Pretty Thomas M.D. 01/30/2019 J30.89 Other allergic rhinitis Allergy Injection 01/23/2019 J30.1 Allergic rhinitis due to pollen Pretty Thomas M.D. 01/23/2019 J30.1 Allergic rhinitis due to pollen Allergy Injection 01/23/2019 J30.2 Other seasonal allergic rhinitis Pretty Thomas M.D. 01/23/2019 J30.2 Other seasonal allergic rhinitis Allergy Injection 01/23/2019 J30.81 Allergic rhinitis due to animal (cat) (dog) Pretty Thomas M.D. hair and dander 01/23/2019 J30.81 Allergic rhinitis due to animal (cat) (dog) Allergy Injection hair and dander 01/23/2019 J30.89 Other allergic rhinitis Pretty Thomas M.D. 01/23/2019 J30.89 Other allergic rhinitis Allergy Injection Plan of Treatment Future Appointment(s):07/03/2019 3:30 pm - Allergy Injection at [place] Functional Status Description No Information Available Mental Status Description No Information Available Referrals Description No Information Available
--- OUTSIDE RECORDS SUMMARY | 2019-07-11 20:05 | XMS REPORT | Continuity of Care Document ---
:1980 External Reference #:[id number] Author Name Allergy Injection (transmitted by agent of provider Daly Mcdonnell) Address [address] [place] [address] Care Team Providers Name Role Phone William Shannon M.D. 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 Problems Active Problems Provider Date Body mass [...] Kathryn 12/09/2015 80mcg/Act Aerosol In Each Uldrich, MAINTENANCE ENGINEER OIL FIELD-C Nostril Daily Levocetirizine Take 1 Tablet 90tabs Kathryn 06/18/2014 Dihydrochloride By Mouth Every Uldrich, MAINTENANCE ENGINEER OIL FIELD-C 5mg Tablets Day Levocetirizine Take 1 Tablet 90tabs Kathryn 06/18/2014 Dihydrochloride By Mouth Every Uldrich, MAINTENANCE ENGINEER OIL FIELD-C 5mg Tablets Day Multivital one a day Unknown Tablets Vitamin D once daily Unknown 2000Unit Tablets Gilenya Take 1 Capsule Unknown 0.5mg Capsules By Mouth Every Day Nexplanon Unknown 68mg Implant Medications Administered in Office Medication SIG Qnty Indications Ordering Provider Date Injection Allergy Injection 06/05/2019 Injection Injection Allergy [...] Beto NaiNeil chinchilla 11/17/2010 Injection Injection Beto NaiNeil chinchilla 11/03/2010 Injection Injection Beto NaiNeil chinchilla 10/20/2010 Injection Injection Beto Neil Trimble 09/26/2010 Injection Injection Beto NaiNeil chinchilla 09/12/2010 Injection Injection Beto NaiNeil chinchilla 08/18/2010 Injection Injection Beto NaiNeil chinchilla 07/28/2010 Injection Injection Beto NaiNeil chinchilla 07/07/2010 Injection Injection Beto NaiNeil chinchilla 06/09/2010 Injection Injection Beto NaiNeil chinchilla 05/26/2010 Injection Injection Beto Neil Trimble 05/12/2010 Injection Injection Jannet Quesada MD 03/31/2010 Injection Injection Jannet Quesada MD 02/17/2010 Injection Injection Beto Neil Trimble 01/20/2010 Injection Injection Ramon Crockett M.D. 12/16/2009 Injection Injection Ramon Crockett M.D. 11/25/2009 Injection Injection Ramon Crockett M.D. 11/11/2009 Injection Injection Beto Neil Trimble 10/28/2009 Injection Injection Beto Neil Trimble 10/14/2009 Injection Injection Beto NaiNeil chinchilla 09/09/2009 Injection Injection Beto Nai, M.DYasir 08/19/2009 Injection Injection Beto Nai, M.DYasir 07/29/2009 Injection Injection Beto Nai, M.D. 07/08/2009 Injection Injection Beto Nai, M.D. 05/27/2009 Injection Injection Beto Nai, M.DYasir 04/29/2009 Injection Injection Beto Nai, M.DYasir 03/25/2009 Injection Injection Beto Nai, M.DYasir 03/18/2009 Injection Injection Beto Nai, M.DYasir 03/11/2009 Injection Injection Beto Nai, M.DYasir 03/04/2009 Injection Injection Beto Nai, M.DYasir 02/25/2009 Injection Injection Beto Nai, M.DYasir 02/11/2009 Injection Injection Beto Nai, M.DYasir 01/14/2009 Injection Injection Beto Nai, M.DYasir 12/24/2008 Injection Injection Beto Nai, M.DYasir 11/14/2008 Injection Injection Beto Nai, M.DYasir 10/29/2008 Injection Injection Beto Nai, M.DYasir 10/22/2008 Injection Injection Beto Nai, M.DYasir 09/19/2008 Injection Injection Beto Nai, M.DYasir 09/05/2008 Injection Injection Beto Nai, M.DYasir 08/15/2008 Injection Injection Beto Nai, M.DYasir 08/08/2008 Injection Injection Beto Nai, M.DYasir 08/01/2008 Injection Injection Beto Nai, M.DYasir 07/25/2008 Injection Injection Beto Nai, M.DYasir 07/13/2008 Injection Injection Beto Nai, M.DYasir 06/22/2008 Injection Injection Beto Nai, M.DYasir 06/15/2008 Injection Injection Beto Nai, M.DYasir 06/06/2008 Injection Injection Beto Nai, M.DYasir 05/25/2008 Injection Injection Beto Nai, M.DYasir 05/11/2008 Injection Injection Beto Nai, M.DYasir 04/27/2008 Injection Injection Beto Nai, M.DYasir 04/20/2008 Injection Injection Beto Neil Trimble 04/06/2008 Injection Injection Beto Neil Trimble 02/29/2008 Injection Injection Ramon Crockett M.D. 02/03/2008 Injection Injection Beto NaiNeil chinchilla 01/23/2008 Injection Injection Beto Neil Trimble 01/06/2008 Injection Injection Beto NaiNeil chinchilla 12/14/2007 Injection Injection Beto Nai, Neil 11/30/2007 Injection Injection Beto Nai, Neil 11/23/2007 Injection Injection Beto NaiNeil chinchilla 11/02/2007 Injection Injection Beto Nai, Neil 10/28/2007 Injection Injection Beto Nai, Neil 10/21/2007 Injection Injection Beto Neil Trimble 10/05/2007 Injection Injection Beto Neil Trimble 09/23/2007 Injection Injection Beto Neil Trimble 09/16/2007 Injection Injection Beto Neil Trimble 09/09/2007 Injection Injection Beto Neil Trimble 08/26/2007 Injection Injection Beto Neil Trimble 08/19/2007 Injection Injection Beto Nai, Neil 08/05/2007 Injection Immunizations CPT Code Status Date Vaccine Lot # [id number] Given Unknown Influenza Vaccine Vital Signs Date [...] Information Available Procedures Date Code Description Status 06/05/2019 98274 Injection Completed 05/08/2019 64143 Injection Completed 04/24/2019 04226 Injection Completed 04/17/2019 64410 Injection Completed 03/27/2019 31645 Injection Completed 02/20/2019 76313 Extract 1-10 Completed 02/20/2019 25363 Injection Completed 01/30/2019 06035 Injection Completed 01/23/2019 43985 Injection Completed Medical Devices Description No Information Available Encounters Description No Information Available Assessments Date Code Description Provider 06/05/2019 J30.1 Allergic rhinitis due to pollen [...] rhinitis Allergy Injection Plan of Treatment Future Appointment(s):06/19/2019 5:30 pm - Allergy Injection at [place] Functional Status Description No Information Available Mental Status Description No Information Available Referrals Description No Information Available
--- OUTSIDE RECORDS SUMMARY | 2019-07-11 20:05 | XMS REPORT | Continuity of Care Document ---
:1980 External Reference #:[id number] Author Name Allergy Injection (transmitted by agent of provider Yesenia Johnson) Address [address] [place] [address] Care Team Providers Name Role Phone William Shannon M.D. 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 Problems Active Problems Provider Date Body mass [...] Kathryn 12/09/2015 80mcg/Act Aerosol In Each Uldrich, TECHNICAL SOLUTIONS ENGINEER-C Nostril Daily Levocetirizine Take 1 Tablet 90tabs Kathryn 06/18/2014 Dihydrochloride By Mouth Every Uldrich, TECHNICAL SOLUTIONS ENGINEER-C 5mg Tablets Day Levocetirizine Take 1 Tablet 90tabs Kathryn 06/18/2014 Dihydrochloride By Mouth Every Uldrich, TECHNICAL SOLUTIONS ENGINEER-C 5mg Tablets Day Multivital one a day Unknown Tablets Vitamin D once daily Unknown 2000Unit Tablets Gilenya Take 1 Capsule Unknown 0.5mg Capsules By Mouth Every Day Nexplanon Unknown 68mg Implant Medications Administered in Office Medication SIG Qnty Indications Ordering Provider Date Injection Allergy Injection 07/03/2019 Injection Injection Allergy Injection 06/19/2019 Injection Injection Allergy [...] Beto Neil Trimble 07/28/2010 Injection Injection Beto NaiNeil chinchilla 07/07/2010 Injection Injection Beto NaiNeil chinchilla 06/09/2010 Injection Injection Beto Neil Trimble 05/26/2010 [...] Beto Neil Trimble 10/14/2009 Injection Injection Beto Nai, M.DYasir 09/09/2009 Injection Injection Beto Nai, M.DYasir 08/19/2009 Injection Injection Beto Nai, M.DYasir 07/29/2009 Injection Injection Beto Nai, M.DYasir 07/08/2009 Injection Injection Beto Nai, M.DYasir 05/27/2009 [...] Injection Beto Neil Trimble 04/20/2008 Injection Injection Betomarco Trimble M.D. 04/06/2008 Injection Injection Betomarco Trimble M.D. 02/29/2008 Injection Injection Ramon Crockett M.D. 02/03/2008 Injection Injection Beto Neil Trimble 01/23/2008 Injection Injection Beto Neil Trimble 01/06/2008 Injection Injection Beto Nai, Neil 12/14/2007 Injection Injection Beto NaiNeil chinchilla 11/30/2007 Injection Injection Beto Neil Trimble 11/23/2007 Injection Injection Beto Neil Trimble 11/02/2007 Injection Injection Beto Nai, Neil 10/28/2007 Injection Injection Beto Neil Trimble 10/21/2007 Injection Injection Beto Trimble M.D. 10/05/2007 Injection Injection Beto Neil Trimble 09/23/2007 Injection Injection Beto Neil Trimble 09/16/2007 Injection Injection Beto Neil Trimble 09/09/2007 Injection Injection Beto Trimble M.D. 08/26/2007 Injection Injection Beto Neil Trimble 08/19/2007 Injection Injection Beto Neil Trimble 08/05/2007 Injection Immunizations CPT Code Status Date Vaccine Lot # [id number] Given Unknown Influenza Vaccine Vital Signs Date [...] Information Available Procedures Date Code Description Status 07/03/2019 31806 Injection Completed 06/19/2019 94044 Injection Completed 06/05/2019 32355 Injection Completed 05/08/2019 60244 Injection Completed 04/24/2019 93862 Injection Completed 04/17/2019 68020 Injection Completed 03/27/2019 87995 Injection Completed 02/20/2019 56727 Extract 1-10 Completed 02/20/2019 39330 Injection Completed 01/30/2019 77214 Injection Completed 01/23/2019 12413 Injection Completed Medical Devices Description No Information Available Encounters Description No Information Available Assessments Date Code Description Provider 07/03/2019 J30.1 Allergic rhinitis due to pollen Pretty Thomas M.D. 07/03/2019 J30.1 Allergic rhinitis due to pollen Allergy Injection 07/03/2019 J30.2 Other seasonal allergic rhinitis Pretty Thomas M.D. 07/03/2019 J30.2 Other seasonal allergic rhinitis Allergy Injection 07/03/2019 J30.81 Allergic rhinitis due to animal (cat) (dog) Pretty Thomas M.D. hair and dander 07/03/2019 J30.81 Allergic rhinitis due to animal (cat) (dog) Allergy Injection hair and dander 07/03/2019 J30.89 Other allergic rhinitis Pretty Thomas M.D. 07/03/2019 J30.89 Other allergic rhinitis Allergy Injection 06/19/2019 J30.1 Allergic rhinitis due to pollen [...] rhinitis Allergy Injection Plan of Treatment Future Appointment(s):07/17/2019 4:00 pm - Allergy Injection at [place] Functional Status Description No Information Available Mental Status Description No Information Available Referrals Description No Information Available
[2019-07-11 20:31] LABS: ABS Lymphocytes 0.1 10^3/ul (1.0-4.8); ABS Monocytes 0.7 10^3/ul (0-0.8); Eosinophil % 0.1 %; Hematocrit 38 % (35-47); Hemoglobin 13.4 g/dL (12.0-16.0); Lymphocyte % 0.9 %; Mean Corpuscular HGB Conc 35 g/dL (31-36); Mean Corpuscular Hemoglobin 34 pg (27-31); Mean Corpuscular Volume 98 fL (80-97); Mean Platelet Volume 7.6 fL (7.4-10.4); Platelet Count 239 10^3/uL (150-450); Red Blood Count 3.91 10^6 /uL (3.70-4.87); Red Cell Distribution Width 12 % (10-15); White Blood Count 12.9 10^3/uL (3.5-10.8)
[2019-07-11 20:43] LABS: ALT 14 U/L (7-52); AST 16 U/L (13-39); Albumin 4.5 g/dL (3.2-5.2); Albumin/Globulin Ratio 1.7 (1-3); Alkaline Phosphatase 44 U/L (34-104); Anion Gap 9 mmol/L (2-11); BUN/Creatinine Ratio 11.1 (8-20); Blood Urea Nitrogen 8 mg/dL (6-24); C Reactive Protein 11.96 mg/L (<8.01); CO2 Carbon Dioxide 26 mmol/L (22-32); Calcium 9.5 mg/dL (8.6-10.3); Chloride 100 mmol/L (101-111); Creatine Kinase 57 U/L (10-223); EGFR African American 110.3 (>60); EGFR Non-African American 91.1 (>60); Globulin 2.6 g/dL (2-4); Glucose 100 mg/dL (70-100); Potassium 4.1 mmol/L (3.5-5.0); Sodium 135 mmol/L (135-145); Total Protein 7.1 g/dL (6.4-8.9)
[2019-07-11 20:45] LABS: Urine Appearance Cloudy; Urine Bilirubin Negative (Negative); Urine Blood 1+ (Negative); Urine Color Yellow; Urine Glucose Negative (Negative); Urine Ketones 1+ (Negative); Urine Nitrite Positive (Negative); Urine Protein Negative (Negative); Urine Specific Gravity 1.012 (1.010-1.030); Urine Urobilinogen Negative (Negative)
[2019-07-11] MEDS ORDERED: cefTRIAXone(*) 1 GM in NS 0.9% 50 ML* 50 ML IVPB ONE (20:46)
[2019-07-11 20:50] LABS: Urine Bacteria 1+ (Absent); Urine Red Blood Cell 2+(6-10/hpf) (Absent); Urine Squamous Epithelial Cell Present (Absent); Urine White Blood Cell 3+(>20/hpf) (Absent)
[2019-07-11 20:52] LABS: Activated Partial Thrombo Time 32.6 seconds (26.0-38.0); Fibrinogen 491.4 mg/dL (110.8-404.3)
[2019-07-11] MEDS ORDERED: Acetaminophen TAB* 325 MG PO ONE (20:56)
[2019-07-11 21:03] LABS: HCG Pregnancy < 0.60 mIU/mL
[2019-07-11] MEDS ORDERED: NS 0.9% 1000 ML** 1,000 ML IV ONE ×2 (21:13→22:13)
[2019-07-11 21:46] LABS: Erythrocyte Sed Rate 19 mm/Hr (0-19)
[2019-07-11] MEDS ORDERED: Cetirizine* 10 MG TAB PO PRN (22:26)
[2019-07-11] MEDS ORDERED: Ondansetron INJ* 2 MG/ML VIAL IV PRN (22:26)
[2019-07-11] MEDS ORDERED: Ibuprofen TAB* 600 MG PO ONE (22:26)
[2019-07-11] MEDS ORDERED: SUMAtriptan TAB* 50 MG PO PRN (22:26)
[2019-07-11] MEDS ORDERED: Butalb/Acetamin/Caff TAB* 1 TAB PO PRN (22:26)
[2019-07-12] MEDS: NS 0.9% 1000 ML** 1,000 ML IV SCH ×3 (00:25→19:00)
--- NOTE | 2019-07-12 00:53 | HP ---
ADMISSION HISTORY AND PHYSICAL: DATE OF ADMISSION: 07/11/19 PROVIDER: Jodie Narvaez NP PRIMARY CARE PHYSICIAN: Dr. Shannon ATTENDING PHYSICIAN: Dr. Vasquez* (dictated by Jodie Narvaez NP) CHIEF COMPLAINT: Blurry vision. HISTORY OF PRESENT ILLNESS: This is a 38-year-old female with a past medical history significant for MS and migraines, who came to the emergency room today after experiencing ongoing blurry vision since about 1700 today. She stated that she started feeling unwell on Wednesday. She was unable to sleep because she was having back pain. She had tried hot packs and showers and nothing helped. She thought it was cramps as she was finishing up her menses. She also tried taking ibuprofen, which did make it feel somewhat better. She also had noted that her urine smelled funny and she was urinating more frequently than she typically does and starting yesterday, it began to hurt when she voided. She had gotten in touch with her doctor via telemedicine and was prescribed an antibiotic for UTI, however, she was unable to pick it up because the pharmacy did not have it on formulary and then around 1700 today when she was at work, her vision went hazy. She stated that she never completely lost her vision. Everything was blurry. She denied any diplopia or any other focal deficits. She stated that currently now in the hospital her vision is slightly better though it is still not crisp, however, she feels "drunk" where she noticed is that her speech is slurred. She is emotionally labile. She states that she was diagnosed with MS about 7 years ago and her typical symptoms are that if she gets hot and exerts herself, she gets fatigued, but has no other symptoms and has never had a flare up in the past. She also states that when she gets migraines, it is about once a year, and one time she saw rainbows prior to a migraine episode. Today, she has a headache, but she blames that on feeling congested as she also has severe allergies for which she takes medications and gets allergy shots. In the emergency room, she received a liter of IV fluids and ceftriaxone. Labs were drawn. Brain CT was performed and the hospitalists were asked to evaluate the patient for admission. PAST MEDICAL HISTORY: MS, migraines, precancerous cervical cells, and benign breast adenoma. PAST SURGICAL HISTORY: She had a breast lumpectomy, wisdom teeth extraction, and a tonsillectomy. MEDICATIONS: 1. She has Implanon implant. 2. Levocetirizine 5 mg p.o. daily p.r.n. 3. Fioricet 1 tab p.o. q.8 hours p.r.n., max daily dose 3. 4. Sumatriptan 50 mg p.o. b.i.d. p.r.n. 5. Multivitamin 1 tab p.o. daily. 6. Cholecalciferol 2000 units p.o. daily. 7. Fingolimod 0.5 mg p.o. daily. 8. Qnasl 80 mcg 2 inhalations in each nostril daily. ALLERGIES: To LATEX. FAMILY HISTORY: Noncontributory. SOCIAL HISTORY: She smokes about 1 pack cigarettes a week. Denies any substance or alcohol use. REVIEW OF SYSTEMS: A 12-point system review was performed, which was positive for lightheadedness, "feeling drunk," slurred speech, subjective fever and chills, blurry vision, back pain, also positive for congestion and runny nose. She is negative for chest pain, palpitation, shortness of breath, abdominal pain , nausea, vomiting. She is moving her bowels. PHYSICAL EXAMINATION GENERAL: This is a well-developed, ill-appearing young woman seen resting in the stretcher in mild distress. VITAL SIGNS: 101.6 temperature, 114 pulse, 18 respirations, 98% oxygen on room air, 135/77 blood pressure. HEENT: Mild conjunctival injection to bilateral eyes, they are glassy in appearance. PERRLA. EOMs intact. No nystagmus noted. No partial gaze paralysis. Oropharynx clear. Mucous membranes are moist. NECK: Supple. LUNGS: Sounds clear throughout bilaterally on room air. No accessory muscle use noted. CARDIAC: S1, S2 present. Heart rate regular, but tachycardic. No murmurs, gallops, or rubs appreciated. BACK: She has left posterior CVA tenderness. ABDOMEN: Soft, nontender, nondistended with positive bowel sounds x4. MUSCULOSKELETAL: No clubbing or cyanosis of the digit. NEUROLOGIC: Blurry vision, however, there is no official asymmetry. No pronator drift or other focal deficits. PSYCH: She is alert and oriented x4. Thought content slightly disorganized. SKIN: Intact without any rashes or lesions appreciated. DIAGNOSTIC STUDIES: Awaiting official radiologic read of CT of her brain. PERTINENT LAB DATA: WBC is 12.9, hemoglobin 13.4, hematocrit 38, MCV 98, MCH 34 , fibrinogen 491.4, chloride 100, lactic acid 0.8, creatinine 0.72. C-reactive protein 11.96. Her urine has 1+ ketones, 1+ blood, positive nitrites, 1+ leukocyte esterase, 3+ wbc's, 2+ rbc's, present squamous epithelial cells, and 1 + bacteria. 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 1. Left pyelonephritis is as evidenced by urine positive for urinary tract infection and left posterior CVA tenderness. She will receive a total of 2 L of IV fluids in the ED and she already received a dose of ceftriaxone, which we will continue once a day for the next 6 days and to see if she responds to that. She is not hypotensive and her lactic acid is below 2. There we will not need to recheck her lactic acid. In the morning, we will obtain an ultrasound of her kidneys to assess for hydronephrosis in presence of pyelonephritis. 2. 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 The patient states that she has had multiple sclerosis for the past 7 years with relatively few symptoms and has never had a flare up. I suspect that her visual changes are mimicking an multiple sclerosis in the setting of sepsis, I will consult Neurology in the morning to see if they deem it necessary to obtain a subsequent MRI with contrast. She last had an MRI in December of last year, which had remained unchanged from her previous MRI in March. She sees Dr. Oseguera as an outpatient. I do suspect that with the treatment of her urinary tract infection , we will see her symptoms improve and at this time I do not feel necessary to give her any corticosteroids. 3. COVID rule out, as the patient is sneezing and occasionally coughing. She is being tested for COVID and so therefore will be kept on droplet precautions, however, my index of suspicion for her actually having COVID is quite low, especially as she states that she has severe allergies and for which she is receiving ongoing treatment. 4. Seasonal allergies. We will continue levocetirizine and Qnasl. 5. Migraines. She states that she gets these very rarely, however, I will continue her Fioricet and sumatriptan as needed. 6. DVT prophylaxis. Her DVT risk is low. I encourage ambulation within the room. She does not require any anticoagulation at this time. 7. Code status is full code. CONDITION: Guarded. DISPOSITION: To admit OBV to [address] [place] [address]. TIME SPENT: Time spent on the patient was about 60 minutes with 30 of that spent face to face. Jodie Narvaez, QA AUTOMATION ARCHITECT [id number]/[facility] #: [id number] ZANDRA
[2019-07-12] MEDS: Acetaminophen TAB* 325 MG PO PRN ×2 (04:32→17:49)
[2019-07-12] MEDS ORDERED: Metoprolol Tartrate IV* 1 MG/ML 5 ML VIAL IV PRN (05:57)
[2019-07-12] MEDS ORDERED: Ibuprofen TAB* 600 MG PO PRN (06:44)
[2019-07-12] MEDS: Fluticasone NASAL SPRAY 50MCG* 16 gm SPRAY BTL BOTH NARES SCH (08:07)
[2019-07-12] MEDS: Cholecalciferol TAB* 1000 UNITS PO SCH (08:07)
[2019-07-12] MEDS: FINGOLIMOD 0.5 MG PO SCH (08:08)
[2019-07-12] MEDS ORDERED: Multivitamins/Minerals TAB PO SCH (09:00)
--- NOTE | 2019-07-12 09:27 | CONSULT ---
Consult Consult: [facility] Tele-Neurology Video Consultation Note Date of Service: 07/12/2019 Requesting Clinician/SILVER: Jodie Narvaez NP Post Timer Summary ED Arrival Date and Time: In-patient evaluation Date and Time of Request: 07/12/2019 at 08:00 Time of Phone call: 07/12/2019 at 08:55 Time of Video Call: 07/12/2019 at 09:08 - 09:36 Evaluation Duration: 28 minutes Jodie Narvaez NP is requesting a Tele-Neurology consultation for the evaluation of MS exacerbation and headache. Chief Complaint: Headache Patient Location: 4N Admission status: In-patient Location of Telemedicine Provider: Medical office building- Neurology clinic Family Members and Medical Staff Present During Exam: Tawny Ruiz RN History of Present Illness: Ms. Shayy Soto is a 38-year-old right-handed female with multiple sclerosis , stable on Gilenya, and migraine headaches, who presented to [facility] ED on 2019 with transient blurred vision and headache. The patient contacted our office last night with those symptoms and I had instructed her to go to the ED for further evaluation. The patient stated that approximately at 1630 on 07/10, she noticed a sudden onset of visual obscuration. She described it as `greying`of the vision. She had bilateral involvement. She was having trouble seeing at work. She was able to go home and wait to see if her symptoms were going away. At 1830, her symptoms were not getting any better so she came to the hospital. She has never had any similar symptoms. She denied double vision or retroorbital pain. Her symptoms completely resolved shortly after she was seen in the ED. At approximately 1900, the symptoms were slowly going away and she was starting to develop a headache. The headache was described as an achy pain, non- radiating, hemicranial involving the left temporal and occipital region, 6/10 in severity, and associated with photophobia and nausea. She denied any Valsalva maneuver like coughing, sneezing, or straining exacerbating the pain. She has migraine headaches infrequently and takes sumatriptan and Fioricet as needed. This is typical for her migraine headache but the only difference is that it has not responded to sumatriptan. In the ED, the patient was found to have a fever. She was screened for COVID. She denied any shortness of breath or loss of taste/smell. She was also found to have pyuria on urinalysis. According to tawny today, the patient was slightly unsteady when walking to the bathroom today. There were no reported falls. The patient is not complaining of any weakness, numbness, swallowing difficulty, slurred speech, or abnormalities in gait. I reviewed the patient`s records in [facility]. She was last seen by Dr. Oseguera on 03/16/2019 for follow-up. She seemed to be stable at that time. I also reviewed her most recent MRI brain imaging which showed extensive demyelinating disease consistent with her diagnosis of MS. Pertinent Medical History: relapsing remitting multiple sclerosis with no recent relapse or flare-up. On Gilenya. Migraine; precancerous cervical cells , and benign breast adenoma. Other Medical History: Breast lumpectomy, wisdom teeth extraction, and tonsillectomy. Review of Systems: 12-points ROS was obtained and otherwise negative except for what was mentioned in the HPI. Allergies: latex Allergy (Verified 07/11/19 19:47) Itching Home Medications: Cholecalciferol TAB* [Vitamin D TAB*] 2,000 units PO DAILY 04/03/16 [History Confirmed 07/11/19] Fingolimod (NF) [Gilenya] 0.5 mg PO DAILY 01/03/19 [History Confirmed 07/11/19] Multivitamins/Minerals TAB* [Theragran/minerals TAB*] 1 tab PO DAILY 01/03/19 [ History Confirmed 07/11/19] Butalb/Acetamin/Caff TAB* [Fioricet TAB*] 1 tab PO Q8H PRN #12 tab MDD 3 tablets 01/04/19 [Rx Confirmed 07/11/19] LevoCETirizine TAB (NF) [Xyzal TAB (NF)] 5 mg PO DAILY PRN 07/11/19 [History Confirmed 07/11/19] SUMAtriptan TAB* [Imitrex TAB*] 50 mg PO BID PRN 07/11/19 [History Confirmed ] Vital Signs: Vital Signs - 12 hr Temp Pulse Resp BP Pulse Ox 07/12/19 08:10 16 07/12/19 08:04 99.3 F 102 16 106/53 97 07/12/19 08:00 97 07/12/19 06:09 101.4 F 07/12/19 04:32 100.9 F 119 20 136/69 100 07/12/19 01:00 16 07/12/19 00:13 99.3 F 109 16 119/68 97 07/12/19 00:02 99.9 F 112 18 121/65 97 07/11/19 23:15 110 112/58 97 07/11/19 23:00 107 97 07/11/19 22:52 97 07/11/19 22:50 99 F 07/11/19 22:49 110 121/65 98 Exam: General: well nourished, well developed. Alert, cooperative, no apparent distress, appears stated age. Head: normocephalic, without obvious abnormality. Eyes: conjunctivae/corneas clear Neck: supple Lungs: clear to auscultation bilaterally, non-labored CV: no edema Extremities: normal range of motion with no cyanosis. Skin: no apparent skin lesions or lacerations Psych: affect-broad and normal mood. Easy to establish rapport. Neurological examination: Mental status: drowsy appearing; alert and oriented to person, place, time, & general circumstances; mild psychomotor slowing. Cranial nerves: I: not tested II, III, IV, : moves eyes vertically and horizontally without any evidence of nystagmus. V 1/2/3: sensation is intact on forehead, cheeks, and jaw region VII: no facial droop; facial symmetry while smiling & wrinkling of forehead; tight lid closure VIII: able to hear throughout the history process IX & X: symmetric palatal elevation XI: normal strength against resistance XII: tongue is symmetrical & midline with no atrophy or fasciculations Motor (R/L): Moved all extremities against gravity. Reflexes: not checked Sensation is intact to light touch throughout. Coordination: normal finger to nose and rapid alternating movements. Gait & Station: deferred Labs and Imaging: - COVID screen: pending - ESR: 19 - CRP: 11.96 - WBC: 12.9 increased to 14.8 - Urinalysis: Nitrate positive, leukocyte estrase: 1+, WBC: 3+, bacteria: 1+ Assessment: Ms. Soto is a 38-year-old female with MS and migraine headache who presented with a transient episode of bilateral visual obscuration and migraine headache. She was found to be febrile, without shortness of breath, and her urinalysis was positive for a UTI. She continues to complain of headaches. 1. Visual obscuration associated with headaches. This is due to intractable migraine headache with aura that has not responded to NSAIDs, acetaminophen, and sumatriptan. 2. Gait imbalance reported by the nurse. Possible pseudo exacerbation of her MS in the setting of an infection. 3. UTI 4. Fevers most likely related to UTI but COVID-19 is an appropriate rule out since the patient is on an immunomodulating drug (Gilenya) which can increase her risk of developing COVID-19, and she is at risk of a more severe infection. Unless she tests positive for COVID-19, there is no evidence to stop the Gilenya at this time. On Rocephin. 5. Tachycardia: most likely related to underlying infection. She is on antibiotics. Recommendations: - Toradol 30 mg IV x 1, magnesium sulfate 2 g IV x 1, Reglan 10 mg IV x 1, and Benadryl 25 mg IV x 1. - Discontinued Fioricit to prevent rebound headaches - If headaches persist after 6 hours of receiving the above medications, trial Solu-Medrol 125 mg IV x 1. - Acetaminophen 650 mg every 6 hours for fever and headache. - Pending COVID 19 labs. If she is positive, I will discuss the case with Dr. Oseguera (the patient`s neurologist) to discuss the risk and benefit of treatment continuation and alternative treatments. - Neuro checks every 6 hours - If she has any new focal neurological deficits, weakness, or persistent gait abnormality that is new, I recommend obtaining an MRI brain and MRI cervical spine with and without contrast. I would hold off on any imaging studies until her UTI is treated and until we receive the result of the COVID screen. - Physical therapy to evaluate and treat - I will continue to follow. Final Impression/Primary Diagnosis: Migraine headache with aura; pseudoMS exacerbation; UTI; COVID Rule out Case discussed with: Tawny Ruiz RN Interaction Attestation: Clinical telemedicine services delivered using HIPAA- compliant interactive video-audio telecommunications while the patient and the rendering provider were not in the same physical location. Written report was provided to the requesting provider.
[2019-07-12 09:35] LABS: ABS Lymphocytes 0.2 10^3/ul (1.0-4.8); ABS Monocytes 1.4 10^3/ul (0-0.8); ABS Neutrophils 13.1 10^3/ul (1.5-7.7); Hematocrit 35 % (35-47); Hemoglobin 12.3 g/dL (12.0-16.0); Lymphocyte % 1.5 %; Mean Corpuscular HGB Conc 35 g/dL (31-36); Mean Corpuscular Hemoglobin 34 pg (27-31); Mean Corpuscular Volume 99 fL (80-97); Mean Platelet Volume 7.7 fL (7.4-10.4); Platelet Count 202 10^3/uL (150-450); Red Blood Count 3.59 10^6 /uL (3.70-4.87); Red Cell Distribution Width 13 % (10-15); White Blood Count 14.8 10^3/uL (3.5-10.8)
[2019-07-12] MEDS ORDERED: Ketorolac INJ* 30 MG/ML 1 ML VIAL IV PUSH ONE (09:56)
[2019-07-12] MEDS ORDERED: Magnesium Sulfate 2 GM IV* 2 GM/50 ML BAG IVPB ONE (09:56)
[2019-07-12] MEDS ORDERED: diPHENhydraMINE IV* 50 MG/ML 1 ml VIAL (BENADRYL) IV ONE (10:15)
[2019-07-12] MEDS ORDERED: Metoclopramide IV* 5 MG/ML 2 ML VIAL IV ONE (10:15)
--- NOTE | 2019-07-12 17:28 | PN ---
Subjective Date of Service: 07/12/19 Interval History: Reports improvement in blurry vision. Abd pain improved. Reports feeling a little better Family History: Unchanged from Admission Social History: Unchanged from Admission Past Medical History: Unchanged from Admission Objective Active Medications: Acetaminophen (Tylenol Tab*) 650 mg PO Q4H PRN PRN Reason: MILD PAIN or TEMP > 100.4 Last Admin: 07/12/19 04:32 Dose: 650 mg Cetirizine HCl (Zyrtec*) 10 mg PO DAILY PRN PRN Reason: Allergy Symptoms Cholecalciferol (Vitamin D Tab*) 2,000 units PO DAILY [facility] Last Admin: 07/12/19 08:07 Dose: 2,000 units Fingolimod (Gilenya) 0.5 mg PO DAILY [facility] Last Admin: 07/12/19 08:08 Dose: Not Given Fluticasone Propionate (Flonase Nasal [place] 50mcg*) 2 spray BOTH NARES DAILY [facility] Last Admin: 07/12/19 08:07 Dose: 2 spray Ceftriaxone Sodium 1 gm/ (Sodium Chloride) 50 mls @ 100 mls/hr IVPB Q24H [facility] Stop: 07/13/19 02:59 Sodium Chloride (Ns 0.9% 1000 Ml) 1,000 mls @ 125 mls/hr IV PER RATE [facility] Stop: 07/13/19 06:29 Last Admin: 07/12/19 08:10 Dose: 125 mls/hr Metoprolol Tartrate (Lopressor Iv*) 5 mg IV Q6H PRN PRN Reason: HR>120 Ondansetron HCl (Zofran Inj*) 4 mg IV Q4H PRN PRN Reason: NAUSEA/VOMITING Last Admin: 07/12/19 06:06 Dose: 4 mg Vital Signs - 8 hr 07/12/19 07/12/19 07/12/19 10:10 11:04 11:13 Temperature 100.2 F Pulse Rate 94 Respiratory 16 16 16 Rate Blood Pressure 110/62 (mmHg) O2 Sat by Pulse 99 Oximetry 07/12/19 07/12/19 12:00 15:03 Temperature 98.7 F Pulse Rate 94 Respiratory 16 16 Rate Blood Pressure 108/63 (mmHg) O2 Sat by Pulse 100 Oximetry Oxygen Devices in Use Now: None Eyes: No Scleral Icterus Ears/Nose/Mouth/Throat: NL Teeth, Lips, Gums Neck: NL Appearance and Movements; NL JVP Respiratory: Symmetrical Chest Expansion and Respiratory Effort, Clear to Auscultation Cardiovascular: NL Sounds; No Murmurs; No JVD Abdominal: NL Sounds; No Tenderness; No Distention Extremities: No Edema Neurological: Alert and Oriented x 3 Result Diagrams: 07/12/19 09:15 07/11/19 20:10 Assess/Plan/Problems-Billing Assessment: - Patient Problems (1) Pyelonephritis Current Visit: Yes Status: Acute Code(s): N12 - TUBULO-INTERSTITIAL NEPHRITIS, NOT SPCF ACUTE OR CHRONIC SNOMED Code(s): 04130494 Comment: uti with pyelo mild hydro on ultrasound on ceftriaxone blood,urine cx pending (2) Migraine aura, persistent, intractable Current Visit: Yes Status: Acute Code(s): G43.519 - PERST MIGRAINE AURA W/O CEREBRAL INFRC, NTRCT, W/O STAT MIGR SNOMED Code(s): 122221313 Comment: severe migraine with aura improved appreciate neuro input (3) Multiple sclerosis Current Visit: Yes Status: Acute Code(s): G35 - MULTIPLE SCLEROSIS SNOMED Code(s): 53816938 Comment: unlikely exacerbation will hold off on steroids for now till covid ruled out appreciate neuro input (4) URI (upper respiratory infection) Current Visit: Yes Status: Acute Code(s): J06.9 - ACUTE UPPER RESPIRATORY INFECTION, UNSPECIFIED SNOMED Code(s): 93469338 Comment: r/o covid pending on gilenya immonomod for MS If covid positive may need to stop for a while.will discuss with neuro
[2019-07-12] MEDS ORDERED: cefTRIAXone(*) 1 GM in NS 0.9% 50 ML* 50 ML IVPB SCH (21:00)
[2019-07-13] MEDS: NS 0.9% 1000 ML** 1,000 ML IV SCH (02:01)
[2019-07-13] MEDS: Acetaminophen TAB* 325 MG PO PRN ×4 (03:25→21:37)
[2019-07-13 06:38] LABS: ABS Lymphocytes 0.2 10^3/ul (1.0-4.8); ABS Monocytes 1.3 10^3/ul (0-0.8); Eosinophil % 0.1 %; Hematocrit 31 % (35-47); Hemoglobin 11.2 g/dL (12.0-16.0); Lymphocyte % 1.9 %; Mean Corpuscular HGB Conc 36 g/dL (31-36); Mean Corpuscular Hemoglobin 35 pg (27-31); Mean Corpuscular Volume 98 fL (80-97); Mean Platelet Volume 7.9 fL (7.4-10.4); Platelet Count 182 10^3/uL (150-450); Red Blood Count 3.16 10^6 /uL (3.70-4.87); Red Cell Distribution Width 12 % (10-15); White Blood Count 11.6 10^3/uL (3.5-10.8)
[2019-07-13 06:45] LABS: BUN/Creatinine Ratio 14.5 (8-20); Calcium 7.9 mg/dL (8.6-10.3); EGFR African American 150.5 (>60); EGFR Non-African American 124.4 (>60); Potassium 3.7 mmol/L (3.5-5.0)
[2019-07-13] MEDS: Fluticasone NASAL SPRAY 50MCG* 16 gm SPRAY BTL BOTH NARES SCH (08:32)
[2019-07-13] MEDS: Cholecalciferol TAB* 1000 UNITS PO SCH (08:33)
[2019-07-13] MEDS: FINGOLIMOD 0.5 MG PO SCH (08:33)
--- NOTE | 2019-07-13 16:02 | PN ---
Subjective Date of Service: 07/13/19 Interval History: Reports feeling a lot better. Fever of 102-103 overnight Family History: Unchanged from Admission Social History: Unchanged from Admission Past Medical History: Unchanged from Admission Objective Active Medications: Acetaminophen (Tylenol Tab*) 650 mg PO Q4H PRN PRN Reason: MILD PAIN or TEMP > 100.4 Last Admin: 07/13/19 12:52 Dose: 650 mg Cetirizine HCl (Zyrtec*) 10 mg PO DAILY PRN PRN Reason: Allergy Symptoms Cholecalciferol (Vitamin D Tab*) 2,000 units PO DAILY [facility] Last Admin: 07/13/19 08:33 Dose: 2,000 units Fluticasone Propionate (Flonase Nasal [place] 50mcg*) 2 spray BOTH NARES DAILY [facility] Last Admin: 07/13/19 08:32 Dose: 2 spray Sodium Chloride (Ns 0.9% 1000 Ml) 1,000 mls @ 125 mls/hr IV PER RATE [facility] Stop: 07/15/19 06:29 Last Admin: 07/13/19 02:01 Dose: 125 mls/hr Metoprolol Tartrate (Lopressor Iv*) 5 mg IV Q6H PRN PRN Reason: HR>120 Ondansetron HCl (Zofran Inj*) 4 mg IV Q4H PRN PRN Reason: NAUSEA/VOMITING Last Admin: 07/12/19 06:06 Dose: 4 mg Vital Signs - 8 hr 07/13/19 07/13/19 07/13/19 08:00 08:33 10:48 Temperature 96.2 F 97.1 F Pulse Rate 88 86 Respiratory 18 18 16 Rate Blood Pressure 109/53 116/68 (mmHg) O2 Sat by Pulse 99 99 100 Oximetry Oxygen Devices in Use Now: None Eyes: No Scleral Icterus Neck: NL Appearance and Movements; NL JVP Respiratory: Symmetrical Chest Expansion and Respiratory Effort Cardiovascular: RRR Abdominal: NL Sounds; No Tenderness; No Distention Extremities: No Edema Neurological: Alert and Oriented x 3 Result Diagrams: 07/13/19 06:01 07/13/19 06:01 Microbiology and Other Data: Microbiology 07/11/19 19:41 Urine Culture - Preliminary Urine Escherichia Coli 07/11/19 20:10 Aerobic Blood Culture - Preliminary Blood Venous No Growth Day 1 Anaerobic Blood Culture - Preliminary No Growth Day 1 07/11/19 20:10 Aerobic Blood Culture - Preliminary Blood Venous No Growth Day 1 Anaerobic Blood Culture - Preliminary No Growth Day 1 Assess/Plan/Problems-Billing Assessment: - Patient Problems (1) Pyelonephritis Current Visit: Yes Status: Acute Code(s): N12 - TUBULO-INTERSTITIAL NEPHRITIS, NOT SPCF ACUTE OR CHRONIC SNOMED Code(s): 23880019 Comment: uti with pyelo mild hydro on ultrasound on ceftriaxone urine cx e coli (2) Migraine aura, persistent, intractable Current Visit: Yes Status: Acute Code(s): G43.519 - PERST MIGRAINE AURA W/O CEREBRAL INFRC, NTRCT, W/O STAT MIGR SNOMED Code(s): 451109639 Comment: severe migraine with aura improved appreciate neuro input (3) Multiple sclerosis Current Visit: Yes Status: Acute Code(s): G35 - MULTIPLE SCLEROSIS SNOMED Code(s): 41411535 Comment: unlikely exacerbation will hold off on steroids for now till covid ruled out appreciate neuro input (4) URI (upper respiratory infection) Current Visit: Yes Status: Acute Code(s): J06.9 - ACUTE UPPER RESPIRATORY INFECTION, UNSPECIFIED SNOMED Code(s): 85493289 Comment: r/o covid pending on gilenya immonomod for MS If covid positive may need to stop for a while.will discuss with neuro
[2019-07-13] MEDS ORDERED: FINGOLIMOD 0.5 MG PO SCH (21:50)
[2019-07-14] MEDS: Acetaminophen TAB* 325 MG PO PRN ×2 (03:53→08:43)
[2019-07-14 08:36] LABS: ABS Eosinophils 0.1 10^3/ul (0-0.6); ABS Lymphocytes 0.4 10^3/ul (1.0-4.8); ABS Monocytes 0.9 10^3/ul (0-0.8); ABS Neutrophils 6.2 10^3/ul (1.5-7.7); Eosinophil % 1.1 %; Hematocrit 31 % (35-47); Hemoglobin 10.8 g/dL (12.0-16.0); Lymphocyte % 4.7 %; Mean Corpuscular HGB Conc 35 g/dL (31-36); Mean Corpuscular Hemoglobin 34 pg (27-31); Mean Corpuscular Volume 97 fL (80-97); Platelet Count 197 10^3/uL (150-450); Red Blood Count 3.17 10^6 /uL (3.70-4.87); Red Cell Distribution Width 12 % (10-15); White Blood Count 7.6 10^3/uL (3.5-10.8)
[2019-07-14] MEDS: Cholecalciferol TAB* 1000 UNITS PO SCH (08:43)
[2019-07-14] MEDS: Fluticasone NASAL SPRAY 50MCG* 16 gm SPRAY BTL BOTH NARES SCH (08:44)
[2019-07-14 08:50] VITALS: BP 112/71
[2019-07-14 08:53] LABS: BUN/Creatinine Ratio 8.2 (8-20); Calcium 8.3 mg/dL (8.6-10.3); EGFR African American 171.9 (>60); EGFR Non-African American 142.1 (>60); Potassium 3.6 mmol/L (3.5-5.0)
--- NOTE | 2019-07-14 11:46 | PN ---
Subjective Date of Service: 07/14/19 Length of Stay: 3 Days Neurology is following for migraine headache and gait instability. Interval History: She feels better today and has no headaches. She is walker better today compare to yesterday. She still feels slightly off balance because of being in bed for three days. She recognized that I was the person examining her via tele two days ago. She is pleasant and has no acute complaints. She wishes to go home. COVID-19: negative. WBC: 7.6; hemoglobin: 10.8; absolute lymphs (0.4) was 0.1 on 07/11/2019. Sodium: 139; creatinine: 0.49; CRP: 11.96; COVID-19: PCR Urine culture: positive for E.Coli >100,000. She received 2 doses of ceftriaxone 1 g on 07/10 and 07/11. Review of Systems: Denied CP, SOB, or palpitations. Denied any focal weakness or paresthesia. Family History: Unchanged from Admission Social History: Unchanged from Admission Past Medical History: Unchanged from Admission Objective Active Medications: Acetaminophen (Tylenol Tab*) 650 mg PO Q4H PRN PRN Reason: MILD PAIN or TEMP > 100.4 Last Admin: 07/14/19 08:43 Dose: 650 mg Cetirizine HCl (Zyrtec*) 10 mg PO DAILY PRN PRN Reason: Allergy Symptoms Cholecalciferol (Vitamin D Tab*) 2,000 units PO DAILY [facility] Last Admin: 07/14/19 08:43 Dose: 2,000 units Fingolimod (Gilenya) 0.5 mg PO BEDTIME [facility] Last Admin: 07/13/19 21:51 Dose: 0.5 mg Fluticasone Propionate (Flonase Nasal [place] 50mcg*) 2 spray BOTH NARES DAILY [facility] Last Admin: 07/14/19 08:44 Dose: 2 spray Sodium Chloride (Ns 0.9% 1000 Ml) 1,000 mls @ 125 mls/hr IV PER RATE [facility] Stop: 07/15/19 06:29 Last Admin: 07/13/19 02:01 Dose: 125 mls/hr Metoprolol Tartrate (Lopressor Iv*) 5 mg IV Q6H PRN PRN Reason: HR>120 Ondansetron HCl (Zofran Inj*) 4 mg IV Q4H PRN PRN Reason: NAUSEA/VOMITING Last Admin: 07/12/19 06:06 Dose: 4 mg Vital Signs 07/13/19 07/13/19 07/13/19 16:02 20:00 20:30 Temperature 97.2 F 98 F Pulse Rate 92 102 Respiratory 18 16 16 Rate Blood Pressure 124/69 125/83 (mmHg) O2 Sat by Pulse 100 99 99 Oximetry 07/13/19 07/14/19 07/14/19 23:50 03:52 08:00 Temperature 97.7 F 98.9 F Pulse Rate 85 91 Respiratory 16 16 18 Rate Blood Pressure 114/72 123/71 (mmHg) O2 Sat by Pulse 99 98 99 Oximetry 07/14/19 08:49 Temperature 97.1 F Pulse Rate 73 Respiratory 16 Rate Blood Pressure 112/71 (mmHg) O2 Sat by Pulse 99 Oximetry Intake and Output Last 24 Hours 07/12/19 07/13/19 07/14/19 07/15/19 06:59 06:59 06:59 06:59 Intake Total 3100 6624 3370 Output Total 350 2000 Balance 3100 6274 1370 Weight 129 lb 8 oz Intake: IV Fluids 3000 4434 1000 NS (0.9%) 1000 3434 1000 IVPB 100 110 ABX - CEFTRIAXONE 55 Oral 0 2080 2370 Output: Urine 350 2000 Other: Estimated Void Medium # Bowel Movements 0 # Voids 1 1 4 Oxygen Devices in Use Now: None Neurology Exam: General: Well nourished, well developed, and in no acute distress HEENT: Normocephelic/atraumatic, sclera anicteric, mucous membranes moist Neck: Supple Extremities: No clubbing, cyanosis, or edema Neurological Findings: Awake, alert, and oriented to person, place, and time. Speech: mild spastic dysarthria Cranial Nerve: PERRL, EOM intact, no rAPD, no nystagmus, face symmetric bilaterally, facial sensation intact, hearing intact to finger rub bilaterally, palate elevates symmetrically, tongue midline, SCM and Trapezius s/s. Motor: s/s throughout, proximal and distal extremities x4 tone/bulk normal Sensation: intact to LT/PP bilaterally upper and lower extremities Deep Tendon Reflex: 2+ symmetric in the upper/lower extremities Finger to nose, rapid alternating movements intact without tremor, no dysdiadochokinesia Gait: narrow based, minimal swaying when initially ambulating. No falls. Did not require assist. Result Diagrams: 07/14/19 07:38 07/14/19 07:38 Microbiology and Other Data: Microbiology 07/11/19 19:41 Urine Culture - Preliminary Urine Escherichia Coli 07/11/19 20:10 Aerobic Blood Culture - Preliminary Blood Venous No Growth Day 1 Anaerobic Blood Culture - Preliminary No Growth Day 1 07/11/19 20:10 Aerobic Blood Culture - Preliminary Blood Venous No Growth Day 1 Anaerobic Blood Culture - Preliminary No Growth Day 1 Assessment/Plan Shayy Soto is a 38-year-old female with relapsing remitting multiple sclerosis who presented to [facility] on 07/11/2019 with fevers, headaches, transient visual obscuration, and gait imbalance. 1. Migraine headache with aura. She responded to the abortive treatment with Toradol, magnesium sulfate, Benadryl, and Reglan. Continue Imtrex at home. 2. Visual obscuration. resolved after migraine treatment. There is low to no suspicion of optic neuritis as she didn't have any retroorbital pain or rAPD. 3. E.Coli UTI. defer treatment to the primary team. Treated with 2 doses of Rocephin. 4. MS- on Gilenya. She has low absolute Lymphs of 0.4 now. Gilenya was held when the absolute lymphs was as low as 0.1, and within two days improved to 0.4. Restart Gilenya. Will discuss the case with Dr. Oseguera. I have shared my concerns with the patient. Disposition: home today. Follow-up with Dr. Oseguera in 4-6 weeks, if possible.
--- NOTE | 2019-07-14 15:13 | DS ---
DISCHARGE SUMMARY: DATE OF ADMISSION: 07/11/19 DATE OF DISCHARGE: 07/14/19 DICTATION ENDS ABRUPTLY [id number]/[facility] #: [id number] ERROR Pl SEE FULL DICTATION MTDD
--- NOTE | 2019-07-14 16:13 | DS ---
DISCHARGE SUMMARY: DATE OF ADMISSION: 07/11/19 DATE OF DISCHARGE: 07/14/19 PRIMARY DIAGNOSES: 1. Pyelonephritis. 2. Sepsis secondary to pyelonephritis. 3. Migraine with aura. 4. Upper respiratory infection. SECONDARY DIAGNOSES: 1. Multiple sclerosis. 2. Migraine. 3. Precancerous cervical cells. 4. Benign breast adenoma. HOSPITAL COURSE: A 38-year-old female with past medical history significant for multiple sclerosis, on fingolimod/Gilenya treatment as an outpatient, came into the emergency room after experiencing arnav rry vision; also had abdominal cramps, back pain, some urinary frequency, urgency, and felt very weak and lethargic; also had some upper respiratory symptoms and a severe headache. The patient in the E R had brain CT which showed no acute abnormality, unchanged findings of known multiple sclerosis. On lab testing, the patient was noted to have a urinary tract infection. Her urine culture later grew E. coli. Her blood cultures have remained negative. The patient spiked a fever of 102 and 103 throu gh hospital course which subsided with antibiotic treatment. Her fevers and chills also subsided. I n light of her upper respiratory symptoms, the patient was also checked for COVID during her hospital stay and her COVID serology was noted to be negative. The patient symptoms had significantly improv ed through hospital course. The patient also had renal ultrasound done which showed mild right right pelviectasis versus extrarenal pelvis and her picture was consistent with pyelonephritis, which impr quinton with IV antibiotic therapy with ceftriaxone. At the time of discharge, the patient is being dis charged on Ceftin 500 mg p.o. b.i.d. to complete 5 more days of treatment. Vitals and labs noted to b e stable at the time of discharge. PHYSICAL EXAMINATION: Temperature 97.1, pulse 73, respiratory rate 16, oxygen saturation 99% on room air, blood pressure 112/71. HEENT: NCAT. Heart: S1, S2 regular. Lungs: Clear. Abdomen: Soft, nontender. Extremities: No edema. Neuro: Alert. LABORATORY DATA: COVID negative. Sodium 139, potassium 3.6, chloride 109, CO2 of 23, BUN 7, creatin ine 0.4. UA noted to be positive with culture growing E. coli. MEDICATION LIST: At the time of discharge: 1. Xyzal every day p.r.n. 2. Fioricet p.r.n. 3. Sumatriptan p.r.n. 4. Multivitamin 1 tab p.o. daily. 5. Vitamin D 2000 units p.o. daily. 6. Gilenya 0.5 mg p.o. daily. 7. Ceftin 500 mg p.o. b.i.d. for 5 more days. DISCHARGE INSTRUCTIONS: 1. Please also note during her hospital stay in light of her blurry vision and significant headache, pseudo-MS exacerbation versus migraine with aura was suspected. The patient had a neurology consult with Dr. Cassidy on 07/12/19, who thought the patient's symptoms were suggestive of migraine with aura . The patient has been on Gilenya for her multiple sclerosis. He had initially recommended stopping this if she was noted to be COVID-positive, and at this time as she is negative, the patient's Gilen ya can be continued. However, the patient noted to have some lymphopenia on CBC differential, which could be secondary to Gilenya and Dr. Cassidy will discuss change in treatment and options with her [facility] neurologist. The patient is to follow up with her neurologist as an outpatient in 1 to 2 weeks. 2. The patient is also to follow up with her PCP in a week. Vitals and labs noted to be stable at t he time of discharge as listed above. DISPOSITION: Home. CONDITION: Stable. Please note, the patient is to continue isolation and quarantining herself for another 9 more days un til 07/24/19. TIME SPENT: Total time spent on discharge is equal to 45 minutes. [id number]/[facility] #: [id number]
[2019-07-14] MEDS ORDERED: FINGOLIMOD 0.5 MG PO SCH (21:00)
== END 2019-07-14 15:30 | disposition home or self-care (01) | DRG 720 ==
LOC: ED 19:09 → MED 22:26 → OBSVTOIN 07-12 14:49
PROVIDERS: ADMIT Internal Medicine; ATTEND Internal Medicine
DX: A41.9 Sepsis, unspecified organism (principal); N12 Tubulo-interstitial nephritis, not specified as acute or chronic; N39.0 Urinary tract infection, site not specified; G35 Multiple sclerosis; J06.9 Acute upper respiratory infection, unspecified; G43.119 Migraine with aura, intractable, without status migrainosus; B96.20 Unspecified Escherichia coli [E. coli] as the cause of diseases classified elsewhere; F17.210 Nicotine dependence, cigarettes, uncomplicated; Z79.899 Other long term (current) drug therapy; Z91.040 Latex allergy status
CPT/HCPCS: 36415; 70450; 71045; 76775; 80048; 80053; 81003; 81015; 82550; 83605; 84484; 84702; 85025; 85384; 85610; 85652; 85730; 86140; 87040; 87077; 87086; 87186; 87635; 96361; 96365; 99282; A9270-GY; G2023; J0696; J1200; J1885; J2405; J2765; J3475